=== PATIENT | male | born 1945 | race Caucasian/White ===

== ENCOUNTER → 2020-05-31 | Outpatient (REF) | payer OTHER ==
[2020-05-31 13:50] LABS: APPEARANCE, URINE CLEAR (CLEAR); BACTERIA, URINE AUTO NEGATIVE (NEGATIVE); BILIRUBIN, URINE AUTO NEGATIVE (NEGATIVE); BLOOD, URINE BLOOD NEGATIVE (NEGATIVE); CALCIUM OXALATE CRYSTALS SMALL; COLOR, URINE YELLOW (YELLOW); GLUCOSE, URINE (UA) AUTO 2+ mg/dL (NEGATIVE); KETONE, URINE AUTO NEGATIVE (NEGATIVE); LEUKOCYTE ESTERASE, URINE AUTO NEGATIVE (NEGATIVE); MUCUS, URINE SMALL (NEGATIVE); NITRITE, URINE AUTO NEGATIVE (NEGATIVE); PROTEIN, URINE AUTO NEGATIVE (NEGATIVE); RBC, URINE AUTO 4 /HPF (0-3); SPECIFIC GRAVITY URINE AUTO 1.019 (1.002-1.035); SQUAMOUS EPITHELIAL CELL UR AU 0 /HPF (0-6); UROBILINOGEN, URINE AUTO 0.2 mg/dL (0.0-2.0); WBC, URINE AUTO 1 /HPF (0-3)
== END ==
LOC: M SMT 13:15
PROVIDERS: ATTEND Nurse Practitioner Family
DX: R31.0 Gross hematuria (principal)
CPT/HCPCS: 81001; 87086; 88108; G0463

== ENCOUNTER 2020-07-23 09:19 | Day surgery (SDC) | payer OTHER ==
[~2020-07-23] VITALS: Ht 182.9 cm; Wt 92.9 kg
[~2020-07-23 09:19] MED LIST: ASPI81TA26 PO; DILT1CAP6 PO; GLIP5TAB20 PO; LR 1,000 ML IV ONE; METF10004 PO; NESI12.5 PO; PRAV10TA3 PO; SERT-138 PO; THERTAB52 PO; TRIA37.5 PO; ceFAZolin SOD 2 GM in IV 1 EA IV ONE
--- OUTSIDE RECORDS SUMMARY | 2020-07-23 09:26 | CCD ---
Author Author [facility] er Organization [facility] er Address Unknown Phone Unavailable Care Team Providers Care Windows Server Engineer Name Role Phone RozinaJose M brunson Unavailable PROBLEMS Type Condition ICD9-CM Code [id number] Code Onset Dates Condition S tatus SNOMED Code Notes Problem Kidney stones N20.0 Active 65167435 Problem Nephrolithiasis N20.0 Active 26338552 Problem DM type 2 (diabetes mellitus, type 2) E11.9 Ac tive 13833084 Problem Hypertension I10 Active 41487869 Problem Hyperlipemia E78.5 Active 10848349 ALLERGIES No Known Allergies ENCOUNTERS from 1945 to 2020-06-30 Encounter Location Date Provider Diagnosis [facility] [address] [facility] [address] [place] [address] Jun, Jose M Handy IMMUNIZATIONS Vaccine Route Administration Date Status Zoster (Shingrix) Unknown Jun 08, 2020 Administered Zoster (Shingrix) Unknown Mar 09, 2020 Administered Influenza, Medicare, Fluvirin IM Intramuscular May 07, 2017 A dministered Influenza, Medicare, Afluria IM Intramuscular Apr 25, 2019 Ad ministered PNEUMOCOCCAL VACC 13 RAJAN IM Unknown Jan 28, 2016 Pend ing Influenza, seasonal unspecified Unknown Mar 29, 2020 Administered Influenza, seasonal unspecified Unknown May 02, 2016 Administered Pneumococcal (PPSV 23) 18 or < Unknown Apr 13, 2003 P ending SOCIAL HISTORY Tobacco Use: Social History Observation Description Date Details (start date - stop date) Never Smoker Sex Assigned At : Social History Observation Description Sex Assigned At Unknown Alcohol Screen (Audit-C) Question Answer Notes Did you have a drink containing alcohol in the past year? Ye s Points 1 Interpretation Negative How often did you have 6 or more drinks on one occasio n in the past year? Never (0 points) How many drinks did you have on a typica l day when you were drinking in the past year? 1 or 2 (0 points) How often did you have a drink containing alcohol in t he past year? Monthly or less (1 point) Tobacco Use/Smoking Question Answer Notes Patient is a never smoker REASON FOR REFERRAL No Information VITAL SIGNS No information MEDICATIONS Medication SIG (Take, Route, Frequency, Duration) Notes Start Da te End Date Status Metformin HCl 500 MG 2 tablets Orally Twice a day for 90 days Active Maxzide-25 37.5-25 MG 1 tablet in the morning Orally Once a day Not-Taking Amlodipine Besylate 5 MG 1 tablet Orally Once a day for 30 day(s ) Mar, Active Pravastatin Sodium 20 MG 1 tablet Orally Once a day for 0 days Apr, Active Cialis 20 MG 1 tablet, as needed Orally Once a day Active Aspirin Adult Low Dose 81 MG 1 tablet Orally Once a day Active Dilacor XR 240 MG 1 capsule on an empty stomac h in the morning Orally Once a day for 90 days Active Multivitamin Adult - as directed Orally Apr, Active GlipiZIDE 10 MG 1/2 tablet Orally two times daily Active Zoloft 100 MG 1 1/2 tablet Orally Once a day Active PROCEDURES No Information RESULTS No Results REASON FOR VISIT FYI MEDICAL (GENERAL) HISTORY Type Description Date Medical History DM type 2 (diabetes mellitus, type 2) Medical History Hyperlipemia Medical History Hypertension Medical History Gout Medical History Renal stones Surgical History appendectomy as a child Hospitalization History see surgical hx Goals Section No Information Health Concerns No Information MEDICAL EQUIPMENT No Information MENTAL STATUS No Information FUNCTIONAL STATUS No Information ASSESSMENTS No Information PLAN OF TREATMENT Medication Medication Name Sig Start Date Stop Date Dilacor XR 240 MG 1 capsule on an empty stomac h in the morning Orally Once a day for 90 days Metformin HCl 500 MG 2 tablets Orally Twice a day for 90 days Next Appt Details Provider Name:Jose M Handy, 2020-08-23 8 01:30:00 PM, [address] [facility], [facility] [address], [place], [address], Insurance Providers Payer Name Payer Address Payer Phone Insured Name Patient Relati onship to Insured Coverage Start Date Coverage End Date Medicare [address] [facility] [id number] HERMES PACHECO
--- OUTSIDE RECORDS SUMMARY | 2020-07-23 09:26 | CCD ---
Author Author [facility] er Organization [facility] er Address Unknown Phone Unavailable Care Team Providers Care Clerical Warehouse Worker Name Role Phone Jose M Handy Unavailable PROBLEMS Type Condition ICD9-CM Code [id number] Code Onset Dates Condition S tatus SNOMED Code Notes Problem Kidney stones N20.0 Active 68101193 Problem Nephrolithiasis N20.0 Active 50074630 Problem DM type 2 (diabetes mellitus, type 2) E11.9 Ac tive 87468693 Problem Hypertension I10 Active 67150949 Problem Hyperlipemia E78.5 Active 83901569 ALLERGIES No Known Allergies ENCOUNTERS from 1945 to 2020-06-16 Encounter Location Date Provider Diagnosis [facility] Internal Medicine [address] [facility] [address] [place] [address] May, Jose M Handy IMMUNIZATIONS Vaccine Route Administration [...] RESULTS No Results REASON FOR VISIT FYI only MEDICAL (GENERAL) HISTORY Type Description Date Medical [...] Next Appt Details Provider Name:Jose M Handy, 2020-08- 8 01:30:00 PM, [address] [facility], [address], [place], [address], Insurance Providers Payer Name Payer Address Payer Phone Insured Name Patient Relati onship to Insured Coverage Start Date Coverage End Date Medicare [address] [facility] [id number] HERMES PACHECO
--- OUTSIDE RECORDS SUMMARY | 2020-07-23 09:26 | CCD ---
Author Author [facility] er Organization [facility] er Address Unknown Phone Unavailable Care Team Providers Care Retail Planner Name Role Phone Jose M Handy Unavailable PROBLEMS Type Condition ICD9-CM Code [id number] Code Onset Dates Condition S tatus SNOMED Code Notes Problem Kidney stones N20.0 Active 62018378 Problem Nephrolithiasis N20.0 Active 12569847 Problem DM type 2 (diabetes mellitus, type 2) E11.9 Ac tive 62750384 Problem Hypertension I10 Active 07487056 Problem Hyperlipemia E78.5 Active 44737024 ALLERGIES No Known Allergies ENCOUNTERS from 1945 to 2020-06-10 Encounter Location Date [facility] [address] [facility] [address] [place] [address] May, Jose M Handy DM type 2 (diabetes mellitus , type 2) E11.9 ; Hypertension I10 ; Nephrolithiasis N20.0 and Hyperlipemia E78.5 IMMUNIZATIONS Vaccine Route Administration Date Status Influenza, Medicare, Fluvirin IM Intramuscular May 07, 2017 A dministered Zoster (Shingrix) Unknown Jun 08, 2020 Administered Zoster (Shingrix) Unknown Mar 09, 2020 Administered Influenza, Medicare, Afluria IM Intramuscular Apr 25, [...] REASON FOR REFERRAL No Information VITAL SIGNS Height 71 in May, Weight 207 lbs May, BMI 28.87 kg/m2 May, Heart Rate 80 /min May, Oximetry 99 % May, Blood pressure systolic 132 mm Hg May, Blood pressure diastolic 80 mm Hg May, MEDICATIONS Medication SIG (Take, Route, Frequency, Duration) Notes Start Da te End Date Status Metformin HCl 500 MG 2 tablets Orally Twice a day for 90 days Active Maxzide-25 37.5-25 MG 1 tablet in the morning Orally Once a day Not-Taking Amlodipine Besylate 5 MG 1 tablet Orally Once a day for 30 day(s ) Mar, Active Zoloft 100 MG 1 1/2 tablet Orally Once a day Active Pravastatin Sodium 20 MG 1 tablet Orally Once a day for 0 days Apr, Active Dilacor XR 240 MG 1 capsule on an empty stomac h in the morning Orally Once a day Active GlipiZIDE 10 MG 1/2 tablet Orally two times daily Active Multivitamin Adult - as directed Orally Apr, Active Cialis 20 MG 1 tablet, as needed Orally Once a day Active Aspirin Adult Low Dose 81 MG 1 tablet Orally Once a day Active PROCEDURES No Information RESULTS No Results REASON FOR VISIT 1 month f/u MEDICAL (GENERAL) HISTORY Type Description Date Medical History DM type 2 (diabetes mellitus, type 2) Medical History Hyperlipemia Medical History Hypertension Medical History Gout Medical History Renal stones Surgical History appendectomy as a child Hospitalization History see surgical hx Goals Section No Information Health Concerns No Information MEDICAL EQUIPMENT No Information MENTAL STATUS No Information FUNCTIONAL STATUS No Information ASSESSMENTS Encounter Date Diagnosis Assessment Notes Treatment Notes Treatm ent Clinical Notes May, DM type 2 (diabetes mellitus, type 2) (ICD-10 - E11.9) May, Hypertension (ICD-10 - I10) May, Nephrolithiasis (ICD-10 - N20.0) May, Hyperlipemia (ICD-10 - E78.5) PLAN OF TREATMENT Medication Medication Name Sig Start Date Stop Date Metformin HCl 500 MG 2 tablets Orally Twice a day for 90 days Future Test Test Name Order Date CBC 20200823 CMP COMPREHENSIVE METABOLIC PROFILE 20200823 MICROALBUMIN/CREATININE RATIO 20200823 URINALYSIS 20200823 HEMOGLOBIN A1C 20200823 LIPID PROFILE 20200823 Next Appt Details 3 Months Reason: Provider Name:Jose M Handy, 2020-08-23 8 01:30:00 PM, [address] [facility], [address], [address], Insurance Providers Payer Name Payer Address Payer Phone Insured Name Patient Relati onship to Insured Coverage Start Date Coverage End Date Medicare [address] [place] [address] HERMES PACHECO self
--- OUTSIDE RECORDS SUMMARY | 2020-07-23 09:26 | CCD ---
Author Author [facility] er Organization [facility] er Address Unknown Phone Unavailable Care Team Providers Care Speeder Hand Name Role Phone Rozina, Jose M Unavailable PROBLEMS Type Condition ICD9-CM Code [id number] Code Onset Dates Condition S tatus SNOMED Code Notes Problem Kidney stones N20.0 Active 08140430 Problem Nephrolithiasis N20.0 Active 76051913 Problem DM type 2 (diabetes mellitus, type 2) E11.9 Ac tive 55697780 Problem Hypertension I10 Active 51156284 Problem Hyperlipemia E78.5 Active 73515377 ALLERGIES No Known Allergies ENCOUNTERS from 1945 to 2020-06-01 Encounter Location Date Provider Diagnosis [facility] [address] [facility] [address] [place] [address] Nov, Jose M Handy IMMUNIZATIONS Vaccine Route Administration Date Status Zoster (Shingrix) Unknown Mar 09, 2020 Administered [...] Notes Start Da te End Date Status Dilacor XR 240 MG 1 capsule on an empty stomac h in the morning Orally Once a day Active GlipiZIDE 10 MG 1/2 tablet Orally two times daily Active Maxzide-25 37.5-25 MG 1 tablet in the morning Orally Once a day Not-Taking Cialis 20 MG 1 tablet, as needed Orally Once a day Active Metformin HCl 500 MG 2 tablets Orally Twice a day for 90 days Active Multivitamin Adult - as directed Orally Apr, Active Zoloft 100 MG 1 1/2 tablet Orally Once a day Active Amlodipine Besylate 5 MG 1 tablet Orally Once a day for 30 day(s ) Mar, Active Aspirin Adult Low Dose 81 MG 1 tablet Orally Once a day Active Pravastatin Sodium 20 MG 1 tablet Orally Once a day for 0 days Apr, Active PROCEDURES No Information RESULTS No Results REASON FOR VISIT No Information MEDICAL (GENERAL) HISTORY Type Description Date Medical [...] Orally Twice a day for 90 days Amlodipine Besylate 5 MG 1 tablet Orally Once a day for 30 day(s ) Mar, Next Appt Details Provider Name:Jose M Handy, 2019-12-1 5 01:15:00 PM, [address] [facility], [address], [place], [address], Insurance Providers Payer Name Payer Address Payer Phone Insured Name Patient Relati onship to Insured Coverage Start Date Coverage End Date Medicare [address] [facility] [id number] HERMES PACHECO
--- OUTSIDE RECORDS SUMMARY | 2020-07-23 09:26 | CCD ---
Author Author [facility] er Organization [facility] er Address Unknown Phone Unavailable Care Team Providers Care Manager Field Name Role Phone Rozina, Jose M Unavailable PROBLEMS Type Condition ICD9-CM Code [id number] Code Onset Dates Condition S tatus SNOMED Code Notes Problem Kidney stones N20.0 Active 13986813 Problem Nephrolithiasis N20.0 Active 17135931 Problem DM type 2 (diabetes mellitus, type 2) E11.9 Ac tive 50331074 Problem Hypertension I10 Active 58697600 Problem Hyperlipemia E78.5 Active 95177259 ALLERGIES No Known Allergies ENCOUNTERS from 1945 to 2020-06-03 Encounter Location Date Provider Diagnosis [facility] [address] [facility] [address] [place] [address] October, Jose M Handy IMMUNIZATIONS Vaccine Route Administration [...] M Handy, 2019-12-1 5 01:15:00 PM, 3 [facility], [address], [place], [address], Insurance Providers Payer Name Payer Address Payer Phone Insured Name Patient Relati onship to Insured Coverage Start Date Coverage End Date Medicare [address] [facility] [address] HERMES PACHECO
--- OUTSIDE RECORDS SUMMARY | 2020-07-23 09:26 | CCD ---
Author Author [facility] Organization [facility] Address Unknown Phone Unavailable Care Team Providers Care Senior Net Application Developer Name Role Phone Siddhartha Woody Unavailable PROBLEMS Type Condition ICD9-CM Code [id number] Code Onset Dates Condition S tatus SNOMED Code Notes Problem Gross hematuria R31.0 Active 280783779 ALLERGIES No Known Allergies ENCOUNTERS from 1945 to 2020-06-29 Encounter Location Date Provider Diagnosis [facility] [address] [place] [address] Jun Siddhartha Woody 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 Sexual Hx: Question Answer Notes Had sex in the last 12 months (vaginal, oral, or anal)? No Have you ever had an STD? No Alcohol Screening: Question Answer Notes Did you have a drink containing alcohol in the past year? Ye s Points 2 Interpretation Negative How many drinks did you have on a typica l day when you were drinking in the past year? 3 or 4 (1 point) How often did you have a drink containing alcohol in t he past year? Monthly or less (1 point) Tobacco Use: Question Answer Notes Are you a: former smoker quit 03/1974 REASON FOR REFERRAL No Information VITAL SIGNS No information MEDICATIONS Medication SIG (Take, Route, Frequency, Duration) Notes Start Da te End Date Status Lisinopril-Hydrochlorothiazide 20-12.5 MG 1 tablet Ora lly Once a day for 30 day(s) Active Cipro 500 MG 1 tablet Orally every 12 hrs for 1 day(s) May, Active GlipiZIDE 10 MG 1 tab Orally bid Act nimco Bactrim DS 800-160 MG 1 tablet 1 hour prior to you r cystoscopy Orally Once for 1 days May, Not-Taking Metformin HCl 500 MG 1 tablet with a meal Orally bid Active PROCEDURES No Information RESULTS No Results REASON FOR VISIT COVID Test MEDICAL (GENERAL) HISTORY Type Description Date Medical History HTN Medical History DM Medical History PTSD Surgical History appendectomy Surgical History cystoscopy 06/15/20 Hospitalization History sx related Goals Section No Information Health Concerns No Information MEDICAL EQUIPMENT No Information MENTAL STATUS No Information FUNCTIONAL STATUS No Information ASSESSMENTS Encounter Date Diagnosis Assessment Notes Treatment Notes Treatm ent Clinical Notes Jun, Bladder neoplasm (ICD-10 - D49.4) Jun, Preop testing (ICD-10 - Z01.818) PLAN OF TREATMENT Medication Medication Name Sig Start Date Stop Date Cipro 500 MG 1 tablet Orally every 12 hrs for 1 day(s) May Treatment Notes Test Name Order Date Coronavirus 2019 NOSE (Send Out) COVID 2020-06-29 Next Appt Details Provider Name:Siddhartha Polanco Bong, 2020-07-27 10:15:00 AM, [address], [place], [address], Insurance Providers Payer Name Payer Address Payer Phone Insured Name Patient Relati onship to Insured Coverage Start Date Coverage End Date 'S ADMINSTRATION ([place]) NON [place] CARE [address] [address] [facility] [id number] CARMEN PACHECO
--- OUTSIDE RECORDS SUMMARY | 2020-07-23 09:26 | CCD ---
Author Author [facility] er Organization [facility] er Address Unknown Phone Unavailable Care Team Providers Care Evp Name Role Phone Jose M Handy Unavailable PROBLEMS Type Condition ICD9-CM Code [id number] Code Onset Dates Condition S tatus SNOMED Code Notes Problem Kidney stones N20.0 Active 70275305 Problem Nephrolithiasis N20.0 Active 58892821 Problem DM type 2 (diabetes mellitus, type 2) E11.9 Ac tive 84085636 Problem Hypertension I10 Active 88728808 Problem Hyperlipemia E78.5 Active 37654387 ALLERGIES No Known Allergies ENCOUNTERS from 1945 to 2020-06-12 Encounter Location Date Provider Diagnosis [facility] 3 [facility] [address] [place] [address] May, Jose M Handy IMMUNIZATIONS Vaccine Route [...] Information RESULTS No Results REASON FOR VISIT Follow up Appointment Needed MEDICAL (GENERAL) HISTORY Type Description Date Medical [...] M Handy, 2020-08- 8 01:30:00 PM, 3 [facility], [address], [place], [address], Insurance Providers Payer Name Payer Address Payer Phone Insured Name Patient Relati onship to Insured Coverage Start Date Coverage End Date Medicare [address] [facility] [id number] HERMES PACHECO self
--- OUTSIDE RECORDS SUMMARY | 2020-07-23 09:26 | CCD ---
Author Author [facility] er Organization [facility] er Address Unknown Phone Unavailable Care Team Providers Care Quality Engineer Medical Device Name Role Phone Rozina, Jose M Unavailable PROBLEMS Type Condition ICD9-CM Code [id number] Code Onset Dates Condition S tatus SNOMED Code Notes Problem Kidney stones N20.0 Active 02085119 Problem Nephrolithiasis N20.0 Active 02257744 Problem DM type 2 (diabetes mellitus, type 2) E11.9 Ac tive 54934877 Problem Hypertension I10 Active 79094108 Problem Hyperlipemia E78.5 Active 65113231 ALLERGIES No Known Allergies ENCOUNTERS from 1945 to 2020-06-14 Encounter Location Date Provider Diagnosis [facility] Nephrology [address] [facility] [address] [place] [address] Jan, Jose M Handy IMMUNIZATIONS Vaccine Route Administration [...] M Handy, 2020-08- 8 01:30:00 PM, 3 [facility], [address], [place], [address], Insurance Providers Payer Name Payer Address Payer Phone Insured Name Patient Relati onship to Insured Coverage Start Date Coverage End Date Medicare [address] [facility] [address] HERMES PACHECO self
--- OUTSIDE RECORDS SUMMARY | 2020-07-23 09:26 | CCD ---
Author Author [facility] er Organization [facility] er Address Unknown Phone Unavailable Care Team Providers Care Nuclear Officer Name Role Phone Jose M Handy Unavailable PROBLEMS Type Condition ICD9-CM Code [id number] Code Onset Dates Condition S tatus SNOMED Code Notes Problem Kidney stones N20.0 Active 44049069 Problem Nephrolithiasis N20.0 Active 37849431 Problem DM type 2 (diabetes mellitus, type 2) E11.9 Ac tive 62321554 Problem Hypertension I10 Active 58821443 Problem Hyperlipemia E78.5 Active 25807452 ALLERGIES No Known Allergies ENCOUNTERS from 1945 to 2020-06-03 Encounter Location Date Provider Diagnosis [facility] [address] [facility] [address] [place] [address] May, Jose M Handy IMMUNIZATIONS Vaccine Route [...] Information RESULTS No Results REASON FOR VISIT appt MEDICAL (GENERAL) HISTORY Type Description Date Medical [...] M Handy, 2019-12-1 5 01:15:00 PM, 3 [facility], [address], [place], [address], Insurance Providers Payer Name Payer Address Payer Phone Insured Name Patient Relati onship to Insured Coverage Start Date Coverage End Date Medicare [address] [facility] [id number] HERMES PACHECO
--- OUTSIDE RECORDS SUMMARY | 2020-07-23 09:26 | CCD ---
Author Author [facility] er Organization [facility] er Address Unknown Phone Unavailable Care Team Providers Care Manuscript Reader Name Role Phone RozinaJose M brunson Unavailable PROBLEMS Type Condition ICD9-CM Code [id number] Code Onset Dates Condition S tatus SNOMED Code Notes Problem Kidney stones N20.0 Active 35054879 Problem Nephrolithiasis N20.0 Active 63046071 Problem DM type 2 (diabetes mellitus, type 2) E11.9 Ac tive 79326931 Problem Hypertension I10 Active 38646826 Problem Hyperlipemia E78.5 Active 81135603 ALLERGIES No Known Allergies ENCOUNTERS from 1945 to 2020-07-01 Encounter Location Date Provider Diagnosis [facility] [address] [facility] [address] [place] [address] October, Jose M Handy IMMUNIZATIONS Vaccine Route [...] M Handy, 2020-08- 8 01:30:00 PM, 3 [facility], [facility] [address], [place], [address], Insurance Providers Payer Name Payer Address Payer Phone Insured Name Patient Relati onship to Insured Coverage Start Date Coverage End Date Medicare [address] [facility] [id number] HERMES PACHECO
--- OUTSIDE RECORDS SUMMARY | 2020-07-23 09:26 | CCD ---
Author Author [facility] Organization [facility] Address Unknown Phone Unavailable Care Team Providers Care Intraoperative Neuro Tech Name Role Phone Gus Lopez Unavailable PROBLEMS Type Condition ICD9-CM Code [id number] Code Onset Dates Condition S tatus SNOMED Code Notes Problem Gross hematuria R31.0 Active 350744759 ALLERGIES No Known Allergies ENCOUNTERS from 1945 to 2020-06-17 Encounter Location Date Provider Diagnosis [facility] U[facility] [address] [place] [address] May Gus Lopez Gross hematuria R31.0 and Bladder neopla sm D49.4 IMMUNIZATIONS No Information SOCIAL HISTORY Tobacco Use: Social History Observation Description Date Details (start date - stop date) Former Smoker Sex Assigned At : Social History Observation Description Sex Assigned At Unknown Language: Question Answer Notes Languages spoken: Swedish Sikhism: Question Answer Notes Sikhism No confucianist beliefs that would impact health care. Sexual [...] REASON FOR REFERRAL No Information VITAL SIGNS Weight 205.2 lbs May, Height 72 in May, BMI 27.83 kg/m2 May, Heart Rate 76 /min May, Respiratory Rate 18 /min May, Temperature 96.1 degrees Fahrenheit May, Oximetry 96 May, Blood pressure systolic 138 mm Hg May, Blood pressure diastolic 64 mm Hg May, MEDICATIONS Medication SIG (Take, [...] with a meal Orally bid Active PROCEDURES from 1944 to 2020-06-17 Procedure Date Ordered Result Body Site Medication: Lidocaine HCl 2% Jelly 5mL Intravesically 2020-06-15 N/A RESULTS No Results REASON FOR VISIT gross hematuria MEDICAL (GENERAL) HISTORY Type Description Date Medical History HTN Medical History DM Medical History PTSD Surgical History appendectomy Surgical History cystoscopy 06/15/20 Hospitalization History sx related Goals Section No Information Health Concerns No Information MEDICAL EQUIPMENT No Information MENTAL STATUS No Information FUNCTIONAL STATUS No Information ASSESSMENTS Encounter Date Diagnosis Assessment Notes Treatment Notes Treatm ent Clinical Notes May, Gross hematuria (ICD-10 - R31.0) Because of the patient's tumor, he'll be scheduled for same-day surgery for bladder tumor resection. 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 Treatment Notes Test Name Order Date CBC - Complete Blood Count 2020-06-17 Basic Metabolic Profile (BMP) 2020-06-17 PT & APTT 2020-06-17 URINE CULTURE 2020-06-17 Electrocardiogram (EKG) 2020-06-17 ADM CHEST 2 VIEW 2020-06-17 Next Appt Details 4 Weeks Reason:postop TURBT Follow Up:4 Weekspostop TURBT Insurance Providers Payer Name Payer Address Payer Phone Insured Name Patient Relati onship to Insured Coverage Start Date Coverage End Date 'S ADMINSTRATION ([place]) NON [place] CARE [address] [address] [facility] [id number] [employer]
--- OUTSIDE RECORDS SUMMARY | 2020-07-23 09:26 | CCD ---
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 Role Phone Rozina, Jose M Unavailable PROBLEMS Type Condition ICD9-CM Code [id number] Code Onset Dates Condition S tatus SNOMED Code Notes Problem Kidney stones N20.0 Active 72949854 Problem Nephrolithiasis N20.0 Active 04401143 Problem DM type 2 (diabetes mellitus, type 2) E11.9 Ac tive 45098696 Problem Hypertension I10 Active 00095316 Problem Hyperlipemia E78.5 Active 38543704 ALLERGIES No Known Allergies ENCOUNTERS from 1945 to 2020-05-20 Encounter Location Date Provider Diagnosis [facility] Ne[facility] [address] [place] [address] Apr, JoseM Handy IMMUNIZATIONS Vaccine Route Administration Date Status Zoster (Shingrix) Unknown Mar 09, 2020 Administered Influenza, Medicare, Afluria IM Intramuscular Apr 25, 2019 Ad ministered Influenza, Medicare, Fluvirin IM Intramuscular May 07, 2017 A dministered PNEUMOCOCCAL VACC 13 RAJAN IM Unknown Jan [...] M Handy, 2019-12-1 5 01:15:00 PM, [address], [address], [place], [address], Insurance Providers Payer Name Payer Address Payer Phone Insured Name Patient Relati onship to Insured Coverage Start Date Coverage End Date Medicare [address] [facility] [id number] [place]
--- OUTSIDE RECORDS SUMMARY | 2020-07-23 09:26 | CCD ---
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 Name Role Phone Siddhartha Woody Unavailable PROBLEMS Type Condition ICD9-CM Code NEI57-MS Code Onset Dates Condition S tatus SNOMED Code Notes Problem Gross hematuria R31.0 Active [id number] ALLERGIES No Known Allergies ENCOUNTERS from 1945 to 2020-06-02 Encounter Location Date Provider Diagnosis [facility] Urology [address] [place] [address] May Siddhartha Woody Gross hematuria R31.0 IMMUNIZATIONS No Information SOCIAL HISTORY Tobacco Use: Social History Observation Description Date Details (start date - stop date) Former Smoker Sex Assigned At : Social History Observation Description Sex Assigned At Unknown Language: Question Answer Notes Languages spoken: Moroccan Faith: Question Answer Notes Faith No congregational beliefs that would impact health care. Sexual [...] FOR REFERRAL No Information VITAL SIGNS Weight 208.6 lbs May, Height 72 in May, BMI 28.29 kg/m2 May, Heart Rate 89 /min May, Respiratory Rate 18 /min May, Temperature 97.3 degrees Fahrenheit May, Oximetry 98 May, Blood pressure systolic 150 mm Hg May, Blood pressure diastolic 80 mm Hg May, MEDICATIONS Medication SIG (Take, Route, Frequency, Duration) Notes Start Da te End Date Status Metformin HCl 500 MG 1 tablet with a meal Orally bid Active GlipiZIDE 10 MG 1 tab Orally bid Act nimco Lisinopril-Hydrochlorothiazide 20-12.5 MG 1 tablet Ora lly Once a day for 30 day(s) Active Bactrim DS 800-160 MG 1 tablet 1 hour prior to you r cystoscopy Orally Once for 1 days May, Active PROCEDURES No Information RESULTS Component Value Reference Range UA URINALYSIS Reviewed date:05/31/2020 14:16:36 Interpretation: Performing Lab:[facility] [address] [address] , ,[facility] URINE CULTURE Reviewed date:06/01/2020 09:49:35 Interpretation: Performing Lab:[facility] [address] [address] , ,[place] [id number] 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 CYTOLOGY REQ FOR SERVI Reviewed date:06/01/2020 12:04:54 Interpretation: Performing Lab:[facility] [address] [address] , ,[facility] URINE REASON FOR VISIT RENAL CALCULI MEDICAL (GENERAL) HISTORY Type Description Date Medical History HTN Medical History DM Medical History PTSD Surgical History appendectomy Hospitalization History sx related Goals Section No Information Health Concerns No Information MEDICAL EQUIPMENT No Information MENTAL STATUS No Information FUNCTIONAL STATUS No Information ASSESSMENTS Encounter Date Diagnosis Assessment Notes Treatment Notes Treatm ent Clinical Notes May, Gross hematuria (ICD-10 - R31.0) We will send urine for a UA, culture and cytology. His CT did show mild right hydronephrosis, pt brought CT disk today, will have doctor review at time of cystoscopy. Discussed his nonobstructing stone is not causing the hematuria. Pt will need a cystoscopy. Procedure reviewed with pt to include risk of infection and bleeding. Consent signed today. [facility] PLAN OF TREATMENT Medication Medication Name Sig Start Date Stop Date Bactrim DS 800-160 MG 1 tablet 1 hour prior to you r cystoscopy Orally Once for 1 days May, Treatment Notes Assessment Notes Clinical Notes Gross hematuria We will send urine f or a UA, culture and cytology. His CT did show mild right hydronephrosis, pt brought CT disk today, will have doctor review at time of cystoscopy. Discussed his nonobstructing stone is not causing the hematuria. Pt will need a cystoscopy. Procedure reviewed with pt to include risk of infection and bleeding. Consent signed today. ABX faxed to [place]. Next Appt Details cystoscopy Reason:gross hematuria Provider Name:Gus Lopez, 2020-06-15 03:00:00 PM, [address], [place], [address], Follow Up:cystoscopygross hematuria Insurance Providers Payer Name Payer Address Payer Phone Insured Name Patient Relati onship to Insured Coverage Start Date Coverage End Date [facility] [address] [facility] [id number] [employer]
--- OUTSIDE RECORDS SUMMARY | 2020-07-23 09:27 | CCD ---
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 Role Phone Tommy Lopez MD Unavailable Unavailable Tommy Lopez MD Unavailable Unavailable Tommy Lopez MD Unavailable Unavailable Tommy Lopez MD Unavailable Unavailable Tommy Lopez MD Unavailable Unavailable Tommy Lopez MD Unavailable Unavailable Tommy Lopez MD Unavailable Unavailable Tommy oLpez MD Unavailable Unavailable Tommy Lopez MD Unavailable Unavailable Tommy Lopez MD Unavailable Unavailable Tommy Lopez MD Unavailable Unavailable Tommy Lopez MD Unavailable Unavailable Tommy Lopez MD Unavailable Unavailable Tommy Lopez MD Unavailable Unavailable Tommy Lopez MD Unavailable Unavailable DAVID, SAHIL LISA PA Unavailable Unavailable DAVID, SAHIL LISA PA Unavailable Unavailable DAVID, SAHIL LISA PA Unavailable Unavailable DAVID, SAHIL LISA PA Unavailable Unavailable DAVID, SAHIL LISA PA Unavailable Unavailable DAVID, SAHIL LISA PA Unavailable Unavailable DAVID, SAHIL LISA PA Unavailable Unavailable DAVID, SAHIL LISA PA Unavailable Unavailable DAVID, SAHIL LISA PA Unavailable Unavailable DAVID, SAHIL LISA PA Unavailable Unavailable DAVID, SAHIL LISA PA Unavailable Unavailable DAVID, SAHIL LISA PA Unavailable Unavailable DAVID, SAHIL LISA PA Unavailable Unavailable DAVID, SAHIL LISA PA Unavailable Unavailable DAVID, SAHIL LISA PA Unavailable Unavailable DAVID, SAHIL LISA PA Unavailable Unavailable DAVID, SAHIL LISA PA Unavailable Unavailable DAVID, SAHIL LISA PA Unavailable Unavailable DAVID, SAHIL LISA PA Unavailable Unavailable DAVID, SAHIL LISA PA Unavailable Unavailable DAVIDSAHIL ANDERSON PA Unavailable Unavailable Shalonda Kapadia MD Unavailable Unavailable Shalonda Kapadia MD Unavailable Unavailable Shalonda Kapadia MD Unavailable Unavailable Shalonda Kapadia MD Unavailable Unavailable Shalonda Kapadia MD Unavailable Unavailable Shalonda Kapadia MD Unavailable Unavailable Shalonda Kapadia MD Unavailable Unavailable Shalonda Kapadia MD Unavailable Unavailable Shalonda Kapadia MD Unavailable Unavailable Shalonda Kapadia MD Unavailable Unavailable Shalonda Kapadia MD Unavailable Unavailable Shalonda Kapadia MD Unavailable Unavailable Shalonda Kapadia MD Unavailable Unavailable Shalonda Kapadia MD Unavailable Unavailable Shalonda Kapadia MD Unavailable Unavailable Shalonda Kapadia MD Unavailable Unavailable Shalonda Kapadia MD Unavailable Unavailable Rei REYES MD Unavailable Unavailable Rei REYES MD Unavailable Unavailable Rei REYES MD Unavailable Unavailable Rei REYES MD Unavailable Unavailable Rei REYES MD Unavailable Unavailable Rei REYES MD Unavailable Unavailable Rei REYES MD Unavailable Unavailable Rei REYES MD Unavailable Unavailable Rei REYES MD Unavailable Unavailable Rei REYES MD Unavailable Unavailable Rei REYES MD Unavailable Unavailable Rei REYES MD Unavailable Unavailable Rei REYES MD Unavailable Unavailable Rei REYES MD Unavailable Unavailable Rei REYES MD Unavailable Unavailable Rei REYES MD Unavailable Unavailable Rei REYES MD Unavailable Unavailable Rei REYES MD Unavailable Unavailable Rei REYES MD Unavailable Unavailable Rei REYES MD Unavailable Unavailable Rei REYES MD Unavailable Unavailable Rei REYES MD Unavailable Unavailable Rei REYES MD Unavailable Unavailable Rei REYES MD Unavailable Unavailable Rei REYES MD Unavailable Unavailable Rei REYES MD Unavailable Unavailable Rei REYES MD Unavailable Unavailable Rei REYES MD Unavailable Unavailable AMYRei BENITEZ MD Unavailable Unavailable Rei REYES MD Unavailable Unavailable AMYRei BENITEZ MD Unavailable Unavailable Rei REYES MD Unavailable Unavailable Rei REYES MD Unavailable Unavailable AMYRei BENITEZ MD Unavailable Unavailable AMY, S BLAIR MD Unavailable Unavailable AMY, S BLAIR MD Unavailable Unavailable AMY, S BLAIR MD Unavailable Unavailable AMY, S BLAIR MD Unavailable Unavailable AMY, S BLAIR MD Unavailable Unavailable AMY, S BLAIR MD Unavailable Unavailable AMY, S BLAIR MD Unavailable Unavailable AMY, S BLAIR MD Unavailable Unavailable AMY, S BLAIR MD Unavailable Unavailable AMY, S BLAIR MD Unavailable Unavailable AMY, S BLAIR MD Unavailable Unavailable AMY, S BLAIR MD Unavailable Unavailable AMY, S BLAIR MD Unavailable Unavailable AMY, S BLAIR MD Unavailable Unavailable AMY, S BLAIR MD Unavailable Unavailable AMY, S BLAIR MD Unavailable Unavailable AMY, S BLAIR MD Unavailable Unavailable AMY, S BLAIR MD Unavailable Unavailable AMY, S BLAIR MD Unavailable Unavailable AMY, S BLAIR MD Unavailable Unavailable AMY, S BLAIR MD Unavailable Unavailable AMY, S BLAIR MD Unavailable Unavailable AMY, S BLAIR MD Unavailable Unavailable AMY, S BLAIR MD Unavailable Unavailable BROUGHAL, C HEMANT PA Unavailable Unavailable BROUGHAL, C HEMANT PA Unavailable Unavailable BROUGHAL, C HEMANT PA Unavailable Unavailable BROUGHAL, C HEMANT PA Unavailable Unavailable BROUGHAL, C HEMANT PA Unavailable Unavailable BROUGHAL, C HEMANT PA Unavailable Unavailable Re-disclosure Warning The records that you are about to access may contain information from federally-assisted alcohol or drug abuse programs. If such information is present, then the following federally mandated warning applies: This information has been disclosed to you from records protected by federal confidentiality rules (42 CFR part 2). The federal rules prohibit you from making any further disclosure of this information unless further disclosure is expressly permitted by the written consent of the person to whom it pertains or as otherwise permitted by 42 CFR part 2. A general authorization for the release of medical or other information is NOT sufficient for this purpose. The Federal rules restrict any use of the information to criminally investigate or prosecute any alcohol or drug abuse patient.The records that you are about to access may contain highly sensitive health information, the redisclosure of which is protected by Article 27-F of the [facility] Public Health law. If you continue you may have access to information: Regarding HIV / AIDS; Provided by facilities licensed or operated by the [facility] Office of Mental Health; or Provided by the [facility] Office for People With Developmental Disabilities. If such information is present, then the following [facility] mandated warning applies: This information has been disclosed to you from confidential records which are protected by state law. State law prohibits you from making any further disclosure of this information without the specific written consent of the person to whom it pertains, or as otherwise permitted by law. Any unauthorized further disclosure in violation of state law may result in a fine or shelter sentence or both. A general authorization for the release of medical or other information is NOT sufficient authorization for further disc losure. Encounters Encounter Providers Location Date Indications Data Source(s ) Outpatient Attender: HEMANT SILVA CPSCAORT-LABCOVWAR 0 07/18/2020 08:32:00 AM EST - 07/18/2020 08:33:00 AM EST Z01.812 [facility] al Z01.812 Patient discharged. Outpatient Attender: LISA SILVA ER-HICCS 07/12/2020 02:12: 00 PM [facility] Outpatient Attender: Jeison Kaur hector: Gus Lopez MDReferrer: Gus Lopez MD SURG-VA-OHS 07/06/2020 11:31:00 AM EST [facility] Outpatient [address] [facility] [address] [place] [address] 06/29/2020 12:00:00 AM EST eCW1 ([facility]) Unknown [address] [facility], [facility] [address] 06/28/2020 12:00:00 AM EST eCW1 ([facility]) Outpatient [address] [facility] [address] [place] [address] 06/16/2020 12:00:00 AM EST eCW1 ([facility]) (Cysto1) Urology [address] [place] [address] 06/15/2020 12:00:00 AM EST eCW1 ([facility]) Outpatient [address] [facility] [address] [place] [address] 06/10/2020 12:00:00 AM EST eCW1 ([facility]) Outpatient [address] [facility] [address] [place] [address] 06/08/2020 12:00:00 AM EST eCW1 ([facility]) Outpatient Attender: BLAIR REYES MD ER-LAB 06/05/2020 06:40:0 0 AM EST [facility] Outpatient [address] [facility] [address] [place] [address] 06/01/2020 12:00:00 AM EST eCW1 ([facility]) Outpatient [address] [facility] [address] 05/31/2020 12:00:00 AM EST eCW1 ([facility]) Outpatient [address] [facility] [address] [place] [address] 05/11/2020 12:00:00 AM EST eCW1 ([facility]) Outpatient [address] [facility] [address] [place] [address] 05/07/2020 12:00:00 AM EST eCW1 ([facility]) Outpatient [address] [facility] [place] [address] 05/07/2020 12:00:00 AM EST eCW1 ([facility]) Outpatient [address] [facility] [address] [place] [address] 04/26/2020 12:00:00 AM EST eCW1 ([facility]) Outpatient Attender: BLAIR REYES MD ER-LAB 04/23/2020 08:17:0 0 AM EDT [facility] Outpatient [address] [facility] [place] [address] 04/19/2020 12:00:00 AM EDT eCW1 ([facility]) Outpatient Attender: BLAIR REYES MD ER-LAB 04/15/2020 01:56:0 0 PM EDT [facility] Outpatient [address] [facility] [address] [place] [address] 04/15/2020 12:00:00 AM EDT eCW1 ([facility]) Outpatient Attender: BLAIR REYES MD ER-RAD 04/14/2020 08:54:0 0 AM EDT [facility] Outpatient 3 [facility] [address] [place] [address] 04/14/2020 12:00:00 AM EDT eCW1 ([facility] [place]) Outpatient Attender: BLAIR REYES MD ER-LAB-PNP 04/13/2020 01:11:0 0 PM EDT [facility] Outpatient [address] [facility] [address] [place] [address] 04/13/2020 12:00:00 AM EDT eCW1 ([facility]) Outpatient [address] [facility] [address] [place] [address] 04/13/2020 12:00:00 AM EDT eCW1 ([facility]) Outpatient 3 [facility] [address] [place] [address] 04/05/2020 12:00:00 AM EDT eCW1 ([facility] [place]) Immunizations Vaccine Date Status Description Data Source(s) Zoster (Shingrix) 06/08/2020 01:20:00 PM EST completed eCW1 ([facility]) Zoster (Shingrix) 06/08/2020 01:20:00 PM EST completed eCW1 ([facility]) Zoster (Shingrix) 06/08/2020 01:20:00 PM EST completed eCW1 ([facility]) Zoster (Shingrix) 06/08/2020 01:20:00 PM EST completed eCW1 ([facility]) Zoster (Shingrix) 06/08/2020 01:20:00 PM EST completed eCW1 ([facility]) Zoster (Shingrix) 06/08/2020 01:20:00 PM EST completed eCW1 ([facility]) IIV3. This is one of two codes replacing CVX 15, which is being retired. 03/29/2020 10:57:00 AM EDT completed eCW1 ([facility]) IIV3. This is one of two codes replacing CVX 15, which is being retired. 03/29/2020 10:57:00 AM EDT completed eCW1 ([facility]) IIV3. This is one of two codes replacing CVX 15, which is being retired. 03/29/2020 10:57:00 AM EDT completed eCW1 ([facility]) IIV3. This is one of two codes replacing CVX 15, which is being retired. 03/29/2020 10:57:00 AM EDT completed eCW1 ([facility]) IIV3. This is one of two codes replacing CVX 15, which is being retired. 03/29/2020 10:57:00 AM EDT completed eCW1 ([facility]) IIV3. This is one of two codes replacing CVX 15, which is being retired. 03/29/2020 10:57:00 AM EDT completed eCW1 ([facility]) IIV3. This is one of two codes replacing CVX 15, which is being retired. 03/29/2020 10:57:00 AM EDT completed eCW1 ([facility]) IIV3. This is one of two codes replacing CVX 15, which is being retired. 03/29/2020 10:57:00 AM EDT completed eCW1 ([facility]) IIV3. This is one of two codes replacing CVX 15, which is being retired. 03/29/2020 10:57:00 AM EDT completed eCW1 ([facility]) IIV3. This is one of two codes replacing CVX 15, which is being retired. 03/29/2020 10:57:00 AM EDT completed eCW1 ([facility]) IIV3. This is one of two codes replacing CVX 15, which is being retired. 03/29/2020 10:57:00 AM EDT completed eCW1 ([facility]) IIV3. This is one of two codes replacing CVX 15, which is being retired. 03/29/2020 10:57:00 AM EDT completed eCW1 ([facility]) IIV3. This is one of two codes replacing CVX 15, which is being retired. 03/29/2020 10:57:00 AM EDT completed eCW1 ([facility]) IIV3. This is one of two codes replacing CVX 15, which is being retired. 03/29/2020 10:57:00 AM EDT completed eCW1 ([facility]) IIV3. This is one of two codes replacing CVX 15, which is being retired. 03/29/2020 10:57:00 AM EDT completed eCW1 ([facility]) IIV3. This is one of two codes replacing CVX 15, which is being retired. 03/29/2020 10:57:00 AM EDT completed eCW1 ([facility]) IIV3. This is one of two codes replacing CVX 15, which is being retired. 03/29/2020 10:57:00 AM EDT completed eCW1 ([facility]) IIV3. This is one of two codes replacing CVX 15, which is being retired. 03/29/2020 10:57:00 AM EDT completed eCW1 ([facility]) IIV3. This is one of two codes replacing CVX 15, which is being retired. 03/29/2020 10:57:00 AM EDT completed eCW1 ([facility]) IIV3. This is one of two codes replacing CVX 15, which is being retired. 03/29/2020 10:57:00 AM EDT completed eCW1 ([facility]) IIV3. This is one of two codes replacing CVX 15, which is being retired. 03/29/2020 10:57:00 AM EDT completed eCW1 ([facility]) IIV3. This is one of two codes replacing CVX 15, which is being retired. 03/29/2020 10:57:00 AM EDT completed eCW1 ([facility]) IIV3. This is one of two codes replacing CVX 15, which is being retired. 03/29/2020 10:57:00 AM EDT completed eCW1 ([facility]) IIV3. This is one of two codes replacing CVX 15, which is being retired. 03/29/2020 10:57:00 AM EDT completed eCW1 ([facility]) Zoster (Shingrix) 03/09/2020 10:57:00 AM EDT completed eCW1 ([facility]) Zoster (Shingrix) 03/09/2020 10:57:00 AM EDT completed eCW1 ([facility]) Zoster (Shingrix) 03/09/2020 10:57:00 AM EDT completed eCW1 ([facility]) Zoster (Shingrix) 03/09/2020 10:57:00 AM EDT completed eCW1 ([facility]) Zoster (Shingrix) 03/09/2020 10:57:00 AM EDT completed eCW1 ([facility]) Zoster (Shingrix) 03/09/2020 10:57:00 AM EDT completed eCW1 ([facility]) Zoster (Shingrix) 03/09/2020 10:57:00 AM EDT completed eCW1 ([facility]) Zoster (Shingrix) 03/09/2020 10:57:00 AM EDT completed eCW1 ([facility]) Zoster (Shingrix) 03/09/2020 10:57:00 AM EDT completed eCW1 ([facility]) Zoster (Shingrix) 03/09/2020 10:57:00 AM EDT completed eCW1 ([facility]) Zoster (Shingrix) 03/09/2020 10:57:00 AM EDT completed eCW1 ([facility]) Zoster (Shingrix) 03/09/2020 10:57:00 AM EDT completed eCW1 ([facility]) Zoster (Shingrix) 03/09/2020 10:57:00 AM EDT completed eCW1 ([facility]) Zoster (Shingrix) 03/09/2020 10:57:00 AM EDT completed eCW1 ([facility]) Zoster (Shingrix) 03/09/2020 10:57:00 AM EDT completed eCW1 ([facility]) Zoster (Shingrix) 03/09/2020 10:57:00 AM EDT completed eCW1 ([facility]) Zoster (Shingrix) 03/09/2020 10:57:00 AM EDT completed eCW1 ([facility]) Zoster (Shingrix) 03/09/2020 10:57:00 AM EDT completed eCW1 ([facility]) Zoster (Shingrix) 03/09/2020 10:57:00 AM EDT completed eCW1 ([facility]) Zoster (Shingrix) 03/09/2020 10:57:00 AM EDT completed eCW1 ([facility]) Zoster (Shingrix) 03/09/2020 10:57:00 AM EDT completed eCW1 ([facility]) Zoster (Shingrix) 03/09/2020 10:57:00 AM EDT completed eCW1 ([facility]) Zoster (Shingrix) 03/09/2020 10:57:00 AM EDT completed eCW1 ([facility]) Zoster (Shingrix) 03/09/2020 10:57:00 AM EDT completed eCW1 ([facility]) Medications Medication Brand Name Start Date Product Form Dose Route Admi nistrative Instructions Pharmacy Instructions Status Indications Reaction Description Data Source(s) Ciprofloxacin 500 MG Oral Tablet [Cipro] Cipro 500 MG Cipro 500 MG 06/15/2020 12:00:00 AM EST 1.0 {tablet} active Ci pro 500 MG eCW1 ([facility]) Ciprofloxacin 500 MG Oral Tablet [Cipro] Cipro 500 MG Cipro 500 MG 06/15/2020 12:00:00 AM EST 1.0 {tablet} active Ci pro 500 MG eCW1 ([facility]) 500 mg 06/09/2020 12:00:00 AM EST tablet 360 TAKE TWO TABLETS BY MOUTH TWICE A DAY TAKE TWO TABLETS BY MOUTH TWICE A DAY SOLD: 06/13/2020 [facility] Sulfamethoxazole 800 MG / Trimethoprim 1 60 MG Oral Tablet [Bactrim] Bactrim DS 800-160 MG Bactrim DS 800-160 MG 05/31/2020 12:00:00 AM EST suspended Bactrim DS 800-160 MG eCW1 ([facility]) Sulfamethoxazole 800 MG / Trimethoprim 1 60 MG Oral Tablet [Bactrim] Bactrim DS 800-160 MG Bactrim DS 800-160 MG 05/31/2020 12:00:00 AM EST suspended Bactrim DS 800-160 MG eCW1 ([facility]) Sulfamethoxazole 800 MG / Trimethoprim 1 60 MG Oral Tablet [Bactrim] Bactrim DS 800-160 MG Bactrim DS 800-160 MG 05/31/2020 12:00:00 AM EST active Bactrim DS 800-160 MG eCW1 ([facility]) 5 mg 05/07/2020 12:00:00 AM EST tablet 30 TAKE ONE TABLET BY MOUTH EVERY DAY TAKE ONE TABLET BY MOUTH EVERY DAY SOLD: 05/11/2020 [facility] 5 mg 04/14/2020 12:00:00 AM EDT tablet 30 TAKE ONE TABLET BY MOUTH EVERY DAY TAKE ONE TABLET BY MOUTH EVERY DAY SOLD: 04/14/2020 [facility] Amlodipine 5 MG Oral Tablet Amlodipine Besylate 5 MG Amlodip ine Besylate 5 MG 04/13/2020 12:00:00 AM EDT 1.0 {tablet} active Amlodipine Besylate 5 MG eCW1 ([facility]) Amlodipine 5 MG Oral Tablet Amlodipine Besylate 5 MG Amlodip ine Besylate 5 MG 04/13/2020 12:00:00 AM EDT 1.0 {tablet} active Amlodipine Besylate 5 MG eCW1 ([facility]) Amlodipine 5 MG Oral Tablet Amlodipine Besylate 5 MG Amlodip ine Besylate 5 MG 04/13/2020 12:00:00 AM EDT 1.0 {tablet} active Amlodipine Besylate 5 MG eCW1 ([facility]) Amlodipine 5 MG Oral Tablet Amlodipine Besylate 5 MG Amlodip ine Besylate 5 MG 04/13/2020 12:00:00 AM EDT 1.0 {tablet} active Amlodipine Besylate 5 MG eCW1 ([facility]) Amlodipine 5 MG Oral Tablet Amlodipine Besylate 5 MG Amlodip ine Besylate 5 MG 04/13/2020 12:00:00 AM EDT 1.0 {tablet} active Amlodipine Besylate 5 MG eCW1 ([facility]) Amlodipine 5 MG Oral Tablet Amlodipine Besylate 5 MG Amlodip ine Besylate 5 MG 04/13/2020 12:00:00 AM EDT 1.0 {tablet} active Amlodipine Besylate 5 MG eCW1 ([facility]) Amlodipine 5 MG Oral Tablet Amlodipine Besylate 5 MG Amlodip ine Besylate 5 MG 04/13/2020 12:00:00 AM EDT 1.0 {tablet} active Amlodipine Besylate 5 MG eCW1 ([facility]) Amlodipine 5 MG Oral Tablet Amlodipine Besylate 5 MG Amlodip ine Besylate 5 MG 04/13/2020 12:00:00 AM EDT 1.0 {tablet} active Amlodipine Besylate 5 MG eCW1 ([facility]) Amlodipine 5 MG Oral Tablet Amlodipine Besylate 5 MG Amlodip ine Besylate 5 MG 04/13/2020 12:00:00 AM EDT 1.0 {tablet} active Amlodipine Besylate 5 MG eCW1 ([facility]) Amlodipine 5 MG Oral Tablet Amlodipine Besylate 5 MG Amlodip ine Besylate 5 MG 04/13/2020 12:00:00 AM EDT 1.0 {tablet} active Amlodipine Besylate 5 MG eCW1 ([facility]) Amlodipine 5 MG Oral Tablet Amlodipine Besylate 5 MG Amlodip ine Besylate 5 MG 04/13/2020 12:00:00 AM EDT 1.0 {tablet} active Amlodipine Besylate 5 MG eCW1 ([facility]) Amlodipine 5 MG Oral Tablet Amlodipine Besylate 5 MG Amlodip ine Besylate 5 MG 04/13/2020 12:00:00 AM EDT 1.0 {tablet} active Amlodipine Besylate 5 MG eCW1 ([facility]) Amlodipine 5 MG Oral Tablet Amlodipine Besylate 5 MG Amlodip ine Besylate 5 MG 04/13/2020 12:00:00 AM EDT 1.0 {tablet} active Amlodipine Besylate 5 MG eCW1 ([facility]) Amlodipine 5 MG Oral Tablet Amlodipine Besylate 5 MG Amlodip ine Besylate 5 MG 04/13/2020 12:00:00 AM EDT 1.0 {tablet} active Amlodipine Besylate 5 MG eCW1 ([facility]) Amlodipine 5 MG Oral Tablet Amlodipine Besylate 5 MG Amlodip ine Besylate 5 MG 04/13/2020 12:00:00 AM EDT 1.0 {tablet} active Amlodipine Besylate 5 MG eCW1 ([facility]) Amlodipine 5 MG Oral Tablet Amlodipine Besylate 5 MG Amlodip ine Besylate 5 MG 04/13/2020 12:00:00 AM EDT 1.0 {tablet} active Amlodipine Besylate 5 MG eCW1 ([facility]) Amlodipine 5 MG Oral Tablet Amlodipine Besylate 5 MG Amlodip ine Besylate 5 MG 04/13/2020 12:00:00 AM EDT 1.0 {tablet} active Amlodipine Besylate 5 MG eCW1 ([facility]) Amlodipine 5 MG Oral Tablet Amlodipine Besylate 5 MG Amlodip ine Besylate 5 MG 04/13/2020 12:00:00 AM EDT 1.0 {tablet} active Amlodipine Besylate 5 MG eCW1 ([facility]) Amlodipine 5 MG Oral Tablet Amlodipine Besylate 5 MG Amlodip ine Besylate 5 MG 04/13/2020 12:00:00 AM EDT 1.0 {tablet} active Amlodipine Besylate 5 MG eCW1 ([facility]) Amlodipine 5 MG Oral Tablet Amlodipine Besylate 5 MG Amlodip ine Besylate 5 MG 04/13/2020 12:00:00 AM EDT 1.0 {tablet} active Amlodipine Besylate 5 MG eCW1 ([facility]) Amlodipine 5 MG Oral Tablet Amlodipine Besylate 5 MG Amlodip ine Besylate 5 MG 04/13/2020 12:00:00 AM EDT 1.0 {tablet} active Amlodipine Besylate 5 MG eCW1 ([facility]) Amlodipine 5 MG Oral Tablet Amlodipine Besylate 5 MG Amlodip ine Besylate 5 MG 04/13/2020 12:00:00 AM EDT 1.0 {tablet} active Amlodipine Besylate 5 MG eCW1 ([facility]) 8 mg 04/06/2020 12:00:00 AM EDT tablet 9 TAKE ONE TABLET BY MOUTH EVERY 8 HOURS NEEDED TAKE ONE TABLET BY MOUTH EVERY 8 HOURS NEEDED SOLD: 04/06/2020 [facility] Insurance Providers Payer name Policy type / Coverage type Policy ID Covered republican ID Covered republican's relationship to harris Policy Harris Plan Information 'S ADMINISTRATION [id number] SP [id number] [facility] [id number] S [id number] [facility] [id number] SP [id number] MEDICARE [id number] S [id number] NON VA CARE [id number] S [id number] [id number] SP [id number] [facility] [id number] SP [id number] ANSI-Medicare Part B [id number] ANSI-Medicare Part B [id number] ANSI-Medicare Part B [id number] ANSI-Medicare Part B [id number] ANSI-Medicare Part B [id number] ANSI-Medicare Part B [id number] ANSI-Medicare Part B [id number] ANSI-Medicare Part B [id number] ANSI-Medicare Part B [id number] ANSI-Medicare Part B [id number] ANSI-Medicare Part B [id number] ANSI-Medicare Part B [id number] ANSI-Medicare Part B [id number] ANSI-Medicare Part B [id number] ANSI-Medicare Part B [id number] NON VA CARE [id number] MEDICARE [id number] S [id number] 78A MEDICARE [id number] S [id number] A NON VA CARE [id number] S [id number] NON VA CARE [id number] [facility] [id number] S [id number] A SELF-PAY UNAVAILABLE S UNAVAILA BLE Problems, Conditions, and Diagnoses Code Display Name Description Problem Type Effective Dates Data Source(s) R31.0 Gross hematuria Gross hematuria Problem 05/31/2020 12:0 0:00 AM EST [facility] ([facility]) N20.0 Nephrolithiasis Nephrolithiasis Problem 04/14/2020 12:0 0:00 AM EDT [facility] ([facility]) Z20.828 Contact with and (suspected) exposure to other viral communicable diseases CONTACT W AND EXPOSURE TO OTH VIRAL COMM Diagnosis 07/12/2020 02:12:00 PM [facility] Z20.822 CONTACT WITH AND (SUSPECTED) EXPOSURE TO COVID-19 CONTACT WITH AND (SUSPECTED) EXPOSURE TO COVID-19 Diagnosis 07/12/2020 02:12:00 PM [facility] N18.31 CHRONIC KIDNEY DISEASE, STAGE 3A CHRONIC KIDNEY DISEASE, STAGE 3A Diagnosis 06/05/2020 06:40:00 AM [facility] R82.90 Unspecified abnormal findings in urine U NSPECIFIED ABNORMAL FINDINGS IN URINE Diagnosis 04/23/2020 08:17:00 AM EDT [facility] N20.0 Calculus of kidney N20.0 Diagnosis 04/23/2020 08:17: 00 AM EDT [facility] E11.9 Type 2 diabetes mellitus without complic ations TYPE 2 DIABETES MELLITUS WITHOUT COMPLICATIONS Diagnosis 04/23/2020 08:17:00 AM EDT [facility]ital N17.8 Other acute kidney failure OTHER ACUTE KIDNEY FAILURE Diagnosis 04/15/2020 01:56:00 PM EDT [facility] B96.89 Other specified bacterial ag ents as the cause of diseases classified elsewhere OT BACTERIAL AGENTS THE CAUSE OF DISEASES CLAS Diagnosis 04/13/2020 01:11:00 PM EDT [facility] N39.0 Urinary tract infection, site not specif ied URINARY TRACT INFECTION, SITE NOT SPECIFIED Diagnosis 04/13/2020 01:11:00 PM EDT [facility] Surgeries/Procedures Procedure Description Date Indications Data Source(s) [id number] 07/18/2020 12:00:00 AM EST [facility] Medication: Lidocaine HCl 2% Jelly 5mL Intravesically 06/15/2020 12:00:00 AM EST eCW1 ([facility]) Results ID Date Data Source [id number] 07/20/2020 05:38:00 AM EST [facility] Name Value Range Interpretation Code Description Data Doreen rce(s) Supporting Document(s) Respiratory specimen severe acute respir atory syndrome coronavirus 2 (SARS-CoV-2) RNA Negative (qualifier value) [facility] This lab was ordered by [facility] and reported by [facility]. ID Date Data Source [id number] 07/12/2020 12:00:00 PM EST [facility] Name Value Range Interpretation Code Description Data Doreen rce(s) Supporting Document(s) SARS coronavirus 2 RNA Not Detected [facility] This lab was ordered by [place] [facility] and reported by [facility]. ID Date Data Source [id number] 07/14/2020 03:12:00 PM EST [facility] Performed at: [email or web address] [place] [address], [place], [place] [id number] Director: Irma Bosch PhD, Phone: [phone] Name Value Range Interpretation Code Description Data Doreen rce(s) Supporting Document(s) SARS-CoV-2, HARRIET Not Detected Not Detected N [facility] This nucleic acid amplification test was developed and itsperformance characteristics determined by [facility]. Nucleic acid amplification tests include RT-PCR and TMA. This test has not been FDA cleared orapproved. This test has been authorized by FDA under anEmergency Use Authorization (EUA). This test is onlyauthorized for the duration of time the declaration thatcircumstances exist justifying the authorization of theemergency use of in vitro diagnostic tests for detection [id number] virus and/or diagnosis of COVID-19 infectionunder section 564(b)(1) of the Act, 21 U.S.C. 360bbb-3(b)(1), unless the authorization is terminated or revokedsooner.When diagnostic testing is negative, the possibility of afalse negative result should be considered in the contextof a patient's recent exposures and the presence ofclinical signs and symptoms consistent with COVID-19. Anindividual without symptoms of COVID-19 and who is notshedding SARS-CoV-2 virus would expect to have a negative(not detected) result in this assay.Methodology: Nucleic Acid Amplification (HARRIET) ID Date Data Source [id number] 07/06/2020 12:03:00 PM EST [facility] CHEST, 4 VIEW SERIESComparison is made t o 02/13/11.PA, lateral and bilateral oblique views were obtained.The cardiac and mediastinal silhouettes appear normal. The lungs areclear. The bones and soft tissues are normal. The abdomen isunremarkable.IMPRESSION: NO ACUTE DISEASE IDENTIFIABLE.Dictated on 07/06/20 1203 by Sinan Wen M.D.Transcribed on 07/06/20 1209 by Linsey Peace by Sinan Wen M.D. on 07/07/20 0920Sign by: Sinan Wen M.D. Name Value Range Interpretation Code Description Data Doreen rce(s) Supporting Document(s) ID Date Data Source [id number] 06/07/2020 08:54:00 AM EST [facility] Name Value Range Interpretation Code Description Data Doreen rce(s) Supporting Document(s) HbA1C 8.10 % 3.8-5.6 H [facility] Suggested Diagnosis HbA1c% Diabet ic >/= 6.5Prediabetes 5.7%-6.4%Normal < 5.7% ID Date Data Source [id number] 06/05/2020 09:09:00 AM EST [facility] Name Value Range Interpretation Code Description Data Doreen rce(s) Supporting Document(s) ALBUMIN,URINE 8.5 mg/L 5-17 [facility] MICROALB/CREAT 10.0 mg/g CR 0-30 [facility] ital CREAT. URINE 85.0 mg/dL [facility] ID Date Data Source [id number] 06/05/2020 08:42:00 AM EST [facility] Name Value Range Interpretation Code Description Data [facility](s) Supporting Document(s) GLU 139 mg/dL 70-110 H [facility] Patients taking Sulfasalazine may have f alsely depressedGlucose levels. Patients taking Sulfapyridine may havefalsely elevated Glucose levels. Patients should be drawnfor Glucose before the initial administration of eitherdrug. BUN 28 mg/dL 7-23 H [facility] CRE 1.410 mg/dL 0.500-1.300 H [facility] GFR 52 mL/min [facility] CHLORIDE 105 mmol/L 99-110 [facility] NA 140 mmol/L 136-147 [facility] POTASSIUM 4.8 mmol/L 3.5-5.1 [facility] TCO2 28 mmol/L 20-33 [facility] ANION GAP 11.8 10.0-20.0 [facility] CA 9.1 mg/dL 8.3-10.7 [facility] ALKALINE PHOS 87 U/L 45-117 [facility] TP 7.0 g/dL 6.0-7.8 [facility] ALB 4.1 g/dL 3.5-5.0 [facility] ESRD Dialysis patient Albumin reference range: 2.9-4.4 g/dL GL 2.9 g/dL 2.3-3.5 [facility] A/G 1.4 1.0-2.5 [facility] T. BILIRUBIN 0.4 mg/dL 0.1-1.1 [facility] The Dimension [place] Total Bilirubin is n ot recommended forpatients undergoing treatment with eltrombopag (Promacta)due to the potential for falsely elevated results. ALTI 21 U/L 6-54 [facility] Patients taking Sulfasalazine and/or Sul fapyridine may havefalsely depressed ALT levels. Patients should be drawn forALT before the initial administration of either drug. AST 14 U/L 8-40 [facility] Patients taking Sulfasalazine and/or Sul fapyridine may havefalsely depressed AST levels. Patients should be drawn forAST before the initial administration of either drug. ID Date Data Source [id number] 06/05/2020 08:19:00 AM EST [facility] Name Value Range Interpretation Code Description Data Doreen rce(s) Supporting Document(s) URINE COLOR Yellow [facility] UAPR Clear [facility] UGLU Negative NEGATIVE [facility] URINE BILIRUBIN Negative NEGATIVE [facility] UKET Negative NEGATIVE [facility] USG 1.015 1.010-1.025 [facility] UBLO Negative NEGATIVE [facility] UpH 5.5 5.0-8.0 [facility] UPRO Negative Negative [facility] UUB 0.2 mg/dL 0.2-1.0 [facility] UNIT Negative Negative [facility] ULEU Negative Negative [facility] ID Date Data Source [id number] 06/05/2020 08:15:00 AM EST [facility] Name Value Range Interpretation Code Description Data Doreen rce(s) Supporting Document(s) WBC 6.39 x10E3/uL 4.0-10.5 [facility] RBC 4.29 x10E6/uL 4.70-6.00 [facility] Hemoglobin 13.0 g/dL 14.0-18.0 [facility] Hematocrit 38.9 % 42.0-52.0 [facility] MCV 90.7 fL 81.0-99.0 [facility] MCH 30.3 pg 27.0-31.0 [facility] MCHC 33.4 g/dL 32.7-35.6 [facility] RDW 13.2 % 11.5-14.0 [facility] Platelet count 259 x10E3/uL 150-450 [facility] ital MPV 10.3 fl 6.9-9.5 H [facility] Neutrophils 62.7 % 34-64 [facility] Lymphocytes 20.3 % 25-45 L [facility] Monocytes 12.8 % 1.7-10.6 H [facility] Eosinophils 3.3 % 0.4-7.0 N [facility] Basophils 0.3 % 0.1-2.0 N [facility] Imm. Gran. 0.6 % 0.1-2.0 N [facility] Abs. Neutro. 4.00 x10E3/uL 1.2-7.6 N [facility] Abs. Lymph. 1.30 x10E3/uL 1.0-3.5 N [facility] Abs. [place]. 0.82 x10E3/uL 0.1-1.0 [facility] Abs. Eosin. 0.21 x10E3/uL 0.1-0.7 N [facility] Abs. Baso. 0.02 x10E3/uL 0.0-0.1 N [facility] Abs. Imm. Gran. 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 05/31/2020 12:00:00 AM EST eC W1 ([facility]) Name Value Range Interpretation Code Description Data Doreen rce(s) Supporting Document(s) URINE eCW1 ([facility]) ID Date Data Source URINE CULTURE 05/31/2020 12:00:00 AM EST eCW1 ([facility]) Name Value Range Interpretation Code Description Data Doreen rce(s) Supporting Document(s) URINE CULTURE eCW1 ([facility]) ID Date Data Source UA URINALYSIS 05/31/2020 12:00:00 AM EST eCW1 ([facility]) Name Value Range Interpretation Code Description Data Doreen rce(s) Supporting Document(s) UA URINALYSIS eCW1 ([facility]) ID Date Data Source [id number] 04/25/2020 01:46:00 PM EST [facility] Name Value Range Interpretation Code Description Data Doreen rce(s) Supporting Document(s) [facility] ID Date Data Source [id number] 04/23/2020 10:50:00 AM EDT [facility] nathalia Name Value Range Interpretation Code Description Data Doreen rce(s) Supporting Document(s) ALBUMIN,URINE 10.2 mg/L 5-17 [facility] MICROALB/CREAT 10.5 mg/g CR 0-30 [facility] ital CREAT. URINE 97.0 mg/dL [facility] ID Date Data Source [id number] 04/23/2020 10:21:00 AM EDT [facility] nathalia Name Value Range Interpretation Code Description Data [facility](s) Supporting Document(s) GLU 191 mg/dL 70-110 H [facility] Patients taking Sulfasalazine may have f alsely depressedGlucose levels. Patients taking Sulfapyridine may havefalsely elevated Glucose levels. Patients should be drawnfor Glucose before the initial administration of eitherdrug. BUN 24 mg/dL 7-23 H [facility] CRE 1.510 mg/dL 0.500-1.300 H [facility] GFR 48 mL/min [facility] CHLORIDE 105 mmol/L 99-110 [facility] NA 140 mmol/L 136-147 [facility] POTASSIUM 4.4 mmol/L 3.5-5.1 [facility] TCO2 27 mmol/L 20-33 [facility] ANION GAP 12.4 10.0-20.0 [facility] CA 9.1 mg/dL 8.3-10.7 [facility] ALKALINE PHOS 75 U/L 45-117 [facility] TP 7.0 g/dL 6.0-7.8 [facility] ALB 3.8 g/dL 3.5-5.0 [facility] ESRD Dialysis patient Albumin reference range: 2.9-4.4 g/dL GL 3.2 g/dL 2.3-3.5 [facility] A/G 1.2 1.0-2.5 [facility] T. BILIRUBIN 0.3 mg/dL 0.1-1.1 [facility] The Dimension [place] Total Bilirubin is n ot recommended forpatients undergoing treatment with eltrombopag (Promacta)due to the potential for falsely elevated results. ALTI 25 U/L 6-54 [facility] Patients taking Sulfasalazine and/or Sul fapyridine may havefalsely depressed ALT levels. Patients should be drawn forALT before the initial administration of either drug. AST 11 U/L 8-40 [facility] Patients taking Sulfasalazine and/or Sul fapyridine may havefalsely depressed AST levels. Patients should be drawn forAST before the initial administration of either drug. ID Date Data Source [id number] 04/23/2020 10:03:00 AM EDT [facility] Name Value Range Interpretation Code Description Data Doreen rce(s) Supporting Document(s) URINE COLOR Yellow [facility] UAPR Clear [facility] UGLU Negative NEGATIVE [facility] URINE BILIRUBIN Negative NEGATIVE [facility] UKET Negative NEGATIVE [facility] USG 1.013 1.010-1.025 [facility] UBLO Negative NEGATIVE [facility] UpH 6.0 5.0-8.0 [facility] UPRO Negative Negative [facility] UUB 0.2 mg/dL 0.2-1.0 [facility] UNIT Negative Negative [facility] ULEU Negative Negative [facility] ID Date Data Source [id number] 04/23/2020 09:51:00 AM EDT [facility] Name Value Range Interpretation Code Description Data Doreen rce(s) Supporting Document(s) WBC 6.22 x10E3/uL 4.0-10.5 [facility] RBC 4.22 x10E6/uL 4.70-6.00 [facility] Hemoglobin 12.8 g/dL 14.0-18.0 [facility] Hematocrit 38.4 % 42.0-52.0 [facility] MCV 91.0 fL 81.0-99.0 [facility] MCH 30.3 pg 27.0-31.0 [facility] MCHC 33.3 g/dL 32.7-35.6 [facility] RDW 12.3 % 11.5-14.0 [facility] Platelet count 368 x10E3/uL 150-450 [facility] ital MPV 9.6 fl 6.9-9.5 H [facility] Neutrophils 69.1 % 34-64 H [facility] Lymphocytes 15.9 % 25-45 L [facility] Monocytes 10.1 % 1.7-10.6 N [facility] Eosinophils 3.5 % 0.4-7.0 [facility] Basophils 0.3 % 0.1-2.0 [facility] Imm. Gran. 1.1 % 0.1-2.0 [facility] Abs. Neutro. 4.29 x10E3/uL 1.2-7.6 [facility] Abs. Lymph. 0.99 x10E3/uL 1.0-3.5 [facility] Abs. [place]. 0.63 x10E3/uL 0.1-1.0 N [facility] l Abs. Eosin. 0.22 x10E3/uL 0.1-0.7 [facility] Abs. Baso. 0.02 x10E3/uL 0.0-0.1 N [facility] l Abs. Imm. Gran. 0.07 x10E3/uL 0.0-0.1 [facility] ANRBC% 0 % 0 [facility] ID Date Data Source [id number] 04/15/2020 03:19:00 PM EDT [facility] Name Value Range Interpretation Code Description Data Doreen rce(s) Supporting Document(s) GLU 109 mg/dL 70-110 [facility] Patients taking Sulfasalazine may have f alsely depressedGlucose levels. Patients taking Sulfapyridine may havefalsely elevated Glucose levels. Patients should be drawnfor Glucose before the initial administration of eitherdrug. BUN 27 mg/dL 7-23 H [facility] CRE 1.740 mg/dL 0.500-1.300 H [facility] GFR 41 mL/min [facility] CHLORIDE 104 mmol/L 99-110 [facility] NA 139 mmol/L 136-147 [facility] POTASSIUM 4.5 mmol/L 3.5-5.1 [facility] TCO2 26 mmol/L 20-33 [facility] ANION GAP 13.5 10.0-20.0 [facility] CA 9.0 mg/dL 8.3-10.7 N [facility] ID Date Data Source CT ABD&PEL WITH ORAL CONT ONLY - [id number] 04/14/2020 01:17:55 P M EDT eCW1 ([facility]) Name Value Range Interpretation Code Description Data Doreen rce(s) Supporting Document(s) eCW1 ([facility]) ID Date Data Source [id number] 04/14/2020 10:49:00 AM EDT [facility] Exam Number: [id number] OF EXAMINATIO N: 04/14/2020 10:24 EDTCT ABD&PEL WITH ORAL CONT ONLYHISTORY: Gross hematuria. Renal stone.TECHNIQUE:This CT exam was performed using the following dose reductiontechniques: automated exposure control, adjustment of mA and/or kVaccording to the patient's size, and use of iterative reconstructiontechnique.Standard contiguous axial spiral imaging was obtained from the dome ofthe diaphragms through the symphysis pubis with oral contrast andwithout intravenous contrast administration and with coronalreformatting.FINDINGS:Lower thorax: 2 small nodules within the right lower lobe unchangedsince the prior CT scan of 2017ABDOMEN:Liver: Unremarkable unenhancedGallbladder and bile ducts: UnremarkablePancreas: UnremarkableSpleen: UnremarkableAdrenals: UnremarkableKidneys and ureters: 2 mm nonobstructive stone upper pole of leftkidney. Previously noted cyst of each kidney, grossly unchanged. Thereis mild right-sided hydroureteronephrosis without any definite stonesalong the course of the right ureterStomach and bowel: UnremarkableAppendix: No appendicitisPELVIS:Bladder: Nondistended and unopacified therefore unable to adequatelyevaluateReproductive: UnremarkableNo free fluid or lymphadenopathyIMPRESSION:Mild right-sided hydroureter without any definite stones. This inconjunction with poor evaluation of the bladder and history of grosshematuria warrants cystoscopy preferably with a retrograde study.Nonobstructive stone of left kidney as well as stable cyst of eachkidneyElectronically signed in [id number] by: Leena Lincoln M.D. 04/14/202010:42 EDT Reported By: Laurent LINCOLN M.D. Signed By: Tanika LINCOLN M.D. Name Value Range Interpretation Code Description Data [facility](s) Supporting Document(s) ID Date Data Source [id number] 04/13/2020 02:17:00 PM EDT [facility] Name Value Range Interpretation Code Description Data [facility](s) Supporting Document(s) GLU 163 mg/dL 70-110 H [facility] Patients taking Sulfasalazine may have f alsely depressedGlucose levels. Patients taking Sulfapyridine may havefalsely elevated Glucose levels. Patients should be drawnfor Glucose before the initial administration of eitherdrug. BUN 35 mg/dL 7-23 H [facility] CRE 2.350 mg/dL 0.500-1.300 H [facility] GFR 29 mL/min [facility] CHLORIDE 101 mmol/L 99-110 [facility] NA 136 mmol/L 136-147 [facility] POTASSIUM 4.8 mmol/L 3.5-5.1 [facility] TCO2 28 mmol/L 20-33 [facility] ANION GAP 11.8 10.0-20.0 [facility] CA 9.3 mg/dL 8.3-10.7 [facility] ALKALINE PHOS 91 U/L 45-117 [facility] TP 7.2 g/dL 6.0-7.8 [facility] ALB 3.3 g/dL 3.5-5.0 [facility] ESRD Dialysis patient Albumin reference range: 2.9-4.4 g/dL GL 3.9 g/dL 2.3-3.5 [facility] A/G 0.8 1.0-2.5 [facility] T. BILIRUBIN 0.4 mg/dL 0.1-1.1 [facility] The [facility]ension [place] Total Bilirubin is n ot recommended forpatients undergoing treatment with eltrombopag (Promacta)due to the potential for falsely elevated results. ALTI 69 U/L 6-54 H [facility] Patients taking Sulfasalazine and/or Sul fapyridine may havefalsely depressed ALT levels. Patients should be drawn forALT before the initial administration of either drug. AST 40 U/L 8-40 [facility] Patients taking Sulfasalazine and/or Sul fapyridine may havefalsely depressed AST levels. Patients should be drawn forAST before the initial administration of either drug. ID Date Data Source [id number] 04/13/2020 01:52:00 PM EDT [facility] Name Value Range Interpretation Code Description Data Doreen rce(s) Supporting Document(s) WBC 8.27 x10E3/uL 4.0-10.5 [facility] RBC 4.16 x10E6/uL 4.70-6.00 [facility] Hemoglobin 12.5 g/dL 14.0-18.0 [facility] Hematocrit 38.3 % 42.0-52.0 [facility] MCV 92.1 fL 81.0-99.0 [facility] MCH 30.0 pg 27.0-31.0 [facility] MCHC 32.6 g/dL 32.7-35.6 [facility] RDW 11.9 % 11.5-14.0 [facility] Platelet count 353 x10E3/uL 150-450 [facility] ital MPV 10.0 fl 6.9-9.5 H [facility] Neutrophils 75.0 % 34-64 H [facility] Lymphocytes 9.4 % 25-45 [facility] Monocytes 8.6 % 1.7-10.6 [facility] Eosinophils 2.8 % 0.4-7.0 [facility] Basophils 0.2 % 0.1-2.0 [facility] Imm. Gran. 4.0 % 0.1-2.0 H [facility] Abs. Neutro. 6.20 x10E3/uL 1.2-7.6 [facility] Abs. Lymph. 0.78 x10E3/uL 1.0-3.5 L [facility] Abs. [place]. 0.71 x10E3/uL 0.1-1.0 [facility]. Eosin. 0.23 x10E3/uL 0.1-0.7 [facility] Abs. Baso. 0.02 x10E3/uL 0.0-0.1 [facility] Abs. Imm. Gran. 0.33 x10E3/uL 0.0-0.1 [facility] ANRBC% 0 % 0 N [facility] ID Date Data Source [id number] 04/14/2020 10:04:00 AM EDT [facility] Name Value Range Interpretation Code Description Data Doreen rce(s) Supporting Document(s) ALBUMIN,URINE 2020.0 mg/L 5-17 [facility] MICROALB/CREAT 1134.8 mg/g CR 0-30 [facility] CREAT. URINE 178.0 mg/dL N [facility] l ID Date Data Source [id number] 04/13/2020 02:36:00 PM EDT [facility] Urine Bilirubin test must be confirmed w ith Ictotest Method Urine Bilirubin test must be confirmed w ith Ictotest Method Name Value Range Interpretation Code Description Data Doreen rce(s) Supporting Document(s) URINE COLOR ARIADNE [facility] UAPR Cloudy [facility] UGLU Negative NEGATIVE [facility] URINE BILIRUBIN Negative NEGATIVE [facility] UKET Negative NEGATIVE [facility] USG 1.016 1.010-1.025 [facility] UBLO 3+ NEGATIVE [facility] UpH 5.5 5.0-8.0 [facility] UPRO 3+ Negative [facility] UUB 1.0 mg/dL 0.2-1.0 [facility] UNIT Negative Negative [facility] ULEU 2+ Negative [facility] ID Date Data Source [id number] 04/13/2020 02:36:00 PM EDT [facility] Urine Bilirubin test must be confirmed w ith Ictotest Method Urine Bilirubin test must be confirmed w ith Ictotest Method Name Value Range Interpretation Code Description Data Doreen rce(s) Supporting Document(s) URINE RBC >200 RBCs/HPF NONE SEEN [facility] URINE WBC 51-100 WBCs/HPF [facility]INE CULTURE HAS BEEN ADDED TO THIS S PECIMEN URINE BACTERIA Moderate [facility] URINE CULTURE HAS BEEN ADDED TO THIS S PECIMEN URINE EPI. Few NONE SEEN N [facility] ID Date Data Source [id number] 04/13/2020 04:10:24 AM EDT eCW1 ([facility]) Name Value Range Interpretation Code Description Data Doreen rce(s) Supporting Document(s) ARIADNE URINE COLOR eCW1 ([facility]) Negative URINE BILIRUBIN eCW1 ([facility]) Negative UGLU eCW1 ([facility]) Cloudy UAPR eCW1 ([facility]) Negative UKET eCW1 ([facility]) 3+ UBLO eCW1 ([facility]) 5.5 UpH eCW1 ([facility]) 1.016 USG eCW1 ([facility]) 3+ UPRO eCW1 ([facility]) 1.0 UUB eCW1 ([facility]) Negative UNIT eCW1 ([facility]) 2+ ULEU eCW1 ([facility]) ID Date Data Source CMP COMPREHENSIVE METABOLIC PROFILE 04/13/2020 04:10:21 AM E DT eCW1 ([facility]) Name Value Range Interpretation Code Description Data Doreen rce(s) Supporting Document(s) 163 GLU eCW1 ([facility]) 2.350 CRE eCW1 ([facility]) 35 BUN eCW1 ([facility]) 101 CHLORIDE eCW1 ([facility]) 136 NA eCW1 ([facility]) 29 GFR eCW1 ([facility]) 11.8 ANION GAP eCW1 ([facility]) 28 TCO2 eCW1 ([facility]) 4.8 POTASSIUM eCW1 ([facility]) 9.3 CA eCW1 ([facility]) 7.2 TP eCW1 ([facility]) 91 ALKALINE PHOS eCW1 ([facility]) 3.3 ALB eCW1 ([facility]) 3.9 GL eCW1 ([facility]) 0.8 A/G eCW1 ([facility]) 40 AST eCW1 ([facility]) 69 ALTI eCW1 ([facility]) 0.4 T. BILIRUBIN eCW1 ([facility]) ID Date Data Source CBC 04/13/2020 02:56:41 AM EDT eCW1 ([facility]) Name Value Range Interpretation Code Description Data Doreen rce(s) Supporting Document(s) 8.27 WBC eCW1 ([facility]) 4.16 RBC eCW1 ([facility]) 38.3 Hematocrit eCW1 ([facility]) 12.5 Hemoglobin eCW1 ([facility]) 92.1 MCV eCW1 ([facility]) 30.0 MCH eCW1 ([facility]) 11.9 RDW eCW1 ([facility]) 32.6 MCHC eCW1 ([facility]) 9.4 Lymphocytes eCW1 ([facility]) 353 Platelet count eCW1 ([facility]) 75.0 Neutrophils eCW1 ([facility]) 10.0 MPV eCW1 ([facility]) 8.6 Monocytes eCW1 ([facility]) 0.2 Basophils eCW1 ([facility]) 2.8 Eosinophils eCW1 ([facility]) 0.78 Abs. Lymph. eCW1 ([facility]) 6.20 Abs. Neutro. eCW1 ([facility]) 4.0 Imm. Gran. eCW1 ([facility]) 0.71 Abs. [place]. eCW1 ([facility]) 0 ANRBC% eCW1 ([facility]) 0.33 Abs. Imm. Gran. eCW1 ([facility]) 0.23 Abs. Eosin. eCW1 ([facility]) 0.02 Abs. Baso. eCW1 ([facility]) Procedure Social History Code Duration Value Status Description Data Source(s ) Smoking 06/15/2020 12:00:00 AM EST Former Smoker completed Former Smoker eCW1 ([facility]) Smoking 06/15/2020 12:00:00 AM EST Former Smoker completed Former Smoker eCW1 ([facility]) Smoking 06/08/2020 12:00:00 AM EST Never Smoker completed Never S moker eCW1 ([facility]) Smoking 06/08/2020 12:00:00 AM EST Never Smoker completed Never S moker eCW1 ([facility]) Smoking 06/08/2020 12:00:00 AM EST Never Smoker completed Never S moker eCW1 ([facility]) Smoking 06/08/2020 12:00:00 AM EST Never Smoker completed Never S moker eCW1 ([facility]) Smoking 06/08/2020 12:00:00 AM EST Never Smoker completed Never S moker eCW1 ([facility]) Smoking 06/08/2020 12:00:00 AM EST Never Smoker completed Never S moker eCW1 ([facility]) Smoking 05/31/2020 12:00:00 AM EST Former Smoker completed Former Smoker eCW1 ([facility]) Smoking 04/26/2020 12:00:00 AM EST Never Smoker completed Never S moker eCW1 ([facility]) Smoking 04/26/2020 12:00:00 AM EST Never Smoker completed Never S moker eCW1 ([facility]) Smoking 04/26/2020 12:00:00 AM EST Never Smoker completed Never S moker eCW1 ([facility]) Smoking 04/26/2020 12:00:00 AM EST Never Smoker completed Never S moker eCW1 ([facility]) Smoking 04/26/2020 12:00:00 AM EST Never Smoker completed Never S moker eCW1 ([facility]) Smoking 04/26/2020 12:00:00 AM EST Never Smoker completed Never S moker eCW1 ([facility]) Smoking 04/26/2020 12:00:00 AM EST Never Smoker completed Never S moker eCW1 ([facility]) Smoking 04/26/2020 12:00:00 AM EST Never Smoker completed Never S moker eCW1 ([facility]) Smoking 04/15/2020 12:00:00 AM EDT Never Smoker completed Never S moker eCW1 ([facility]) Smoking 04/15/2020 12:00:00 AM EDT Never Smoker completed Never S moker eCW1 ([facility]) Smoking 04/15/2020 12:00:00 AM EDT Never Smoker completed Never S moker eCW1 ([facility]) Smoking 04/15/2020 12:00:00 AM EDT Never Smoker completed Never S moker eCW1 ([facility]) Smoking 04/15/2020 12:00:00 AM EDT Never Smoker completed Never S moker eCW1 ([facility]) Smoking 04/15/2020 12:00:00 AM EDT Never Smoker completed Never S moker eCW1 ([facility]) Smoking 04/15/2020 12:00:00 AM EDT Never Smoker completed Never S moker eCW1 ([facility]) Smoking 04/15/2020 12:00:00 AM EDT Never Smoker completed Never S moker eCW1 ([facility]) Vital Signs ID Date Data Source UNK Name Value Range Interpretation Code Description Data Source(s) Diastolic blood pressure 64 mm[Hg] 64 mm[Hg] eCW1 ([facility]) Systolic blood pressure 138 mm[Hg] 138 mm[Hg] e CW1 ([facility]) Body temperature 96.1 [degF] 96.1 [degF] eCW1 ( [facility]) Respiratory rate 18 /min 18 /min eCW1 ([facility]) Heart rate 76 /min 76 /min eCW1 ([facility]) Body mass index (BMI) [Ratio] 27.83 kg/m2 27.83 kg/m2 eCW1 ([facility]) Body height 72 [in_i] 72 [in_i] eCW1 ([facility]) Body weight 205.2 [lb_av] 205.2 [lb_av] eCW1 ([facility]) Diastolic blood pressure 80 mm[Hg] 80 mm[Hg] eCW1 ([facility]) Systolic blood pressure 132 mm[Hg] 132 mm[Hg] e CW1 ([facility]) Oxygen saturation in Arterial blood by Pulse oximetry 99 % 99 % W1 ([facility]) Heart rate 80 /min 80 /min eCW1 ([facility]) Body mass index (BMI) [Ratio] 28.87 kg/m2 28.87 kg/m2 W1 ([facility]) Body weight 207 [lb_av] 207 [lb_av] eCW1 ([facility]) Body height 71 [in_i] 71 [in_i] eCW1 ([facility]) Diastolic blood pressure 80 mm[Hg] 80 mm[Hg] eCW1 ([facility]) Systolic blood pressure 150 mm[Hg] 150 mm[Hg] e CW1 ([facility]) Body temperature 97.3 [degF] 97.3 [degF] eCW1 ( [facility]) Respiratory rate 18 /min 18 /min eCW1 ([facility]) Heart rate 89 /min 89 /min eCW1 ([facility]) Body mass index (BMI) [Ratio] 28.29 kg/m2 28.29 kg/m2 eCW1 ([facility]) Body height 72 [in_i] 72 [in_i] eCW1 ([facility]) Body weight 208.6 [lb_av] 208.6 [lb_av] eCW1 ([facility]) Diastolic blood pressure 80 mm[Hg] 80 mm[Hg] eCW1 ([facility]) Systolic blood pressure 132 mm[Hg] 132 mm[Hg] e CW1 ([facility]) Oxygen saturation in Arterial blood by Pulse oximetry 99 % 99 % eCW1 ([facility]) Heart rate 94 /min 94 /min eCW1 ([facility]) Body mass index (BMI) [Ratio] 28.31 kg/m2 28.31 kg/m2 eCW1 ([facility]) Body weight 203 [lb_av] 203 [lb_av] eCW1 ([facility]) Body height 71 [in_i] 71 [in_i] eCW1 ([facility]) Diastolic blood pressure 72 mm[Hg] 72 mm[Hg] eCW1 ([facility]) Systolic blood pressure 126 mm[Hg] 126 mm[Hg] e CW1 ([facility]) Oxygen saturation in Arterial blood by Pulse oximetry 96 % 96 % eCW1 ([facility]) Heart rate 78 /min 78 /min eCW1 ([facility]) Body mass index (BMI) [Ratio] 28.45 kg/m2 28.45 kg/m2 eCW1 ([facility]) Body weight 92.53 kg 92.53 kg eCW1 ([facility]) Body weight 204 [lb_av] 204 [lb_av] eCW1 ([facility]) Body height 71 [in_i] 71 [in_i] eCW1 ([facility]) Diastolic blood pressure 60 mm[Hg] 60 mm[Hg] eCW1 ([facility]) Systolic blood pressure 92 mm[Hg] 92 mm[Hg] e CW1 ([facility]) Oxygen saturation in Arterial blood by Pulse oximetry 97 % 97 % eCW1 ([facility]) Heart rate 81 /min 81 /min W1 ([facility]) Body mass index (BMI) [Ratio] 28.81 kg/m2 28.81 kg/m2 eCW1 ([facility]) Body weight 93.71 kg 93.71 kg eCW1 ([facility]) Body weight 206.6 [lb_av] 206.6 [lb_av] eCW1 ([facility]) Body height 71 [in_i] 71 [in_i] eCW1 ([facility]) Patient Treatment Plan of Care Planned Activity Planned Date Details Description Data Source (s) Ciprofloxacin 500 MG Oral Tablet [Cipro] 06/15/2020 12:00:00 AM EST eCW1 ([facility]) Ciprofloxacin 500 MG Oral Tablet [Cipro] 06/15/2020 12:00:00 AM EST eCW1 ([facility]) Sulfamethoxazole 800 MG / Trimethoprim 160 MG Oral Tab let [Bactrim] 05/31/2020 12:00:00 AM EST eCW1 ([facility]) Amlodipine 5 MG Oral Tablet 04/13/2020 12:00:00 AM EDT eCW1 ([facility]) Amlodipine 5 MG Oral Tablet 04/13/2020 12:00:00 AM EDT eCW1 ([facility]) Amlodipine 5 MG Oral Tablet 04/13/2020 12:00:00 AM EDT eCW1 ([facility]) Amlodipine 5 MG Oral Tablet 04/13/2020 12:00:00 AM EDT eCW1 ([facility]) Amlodipine 5 MG Oral Tablet 04/13/2020 12:00:00 AM EDT eCW1 ([facility]) Amlodipine 5 MG Oral Tablet 04/13/2020 12:00:00 AM EDT eCW1 ([facility]) Amlodipine 5 MG Oral Tablet 04/13/2020 12:00:00 AM EDT eCW1 ([facility])
--- OUTSIDE RECORDS SUMMARY | 2020-07-23 09:27 | CCD ---
Author Author [facility] Organization [facility] Address Unknown Phone Unavailable Care Team Providers Care Interviewing Clerk Name Role Phone Jose M Handy Unavailable PROBLEMS Type Condition ICD9-CM Code [id number] Code Onset Dates Condition S tatus SNOMED Code Notes Problem Kidney stones N20.0 Active 28942132 Problem Nephrolithiasis N20.0 Active 75615297 Problem DM type 2 (diabetes mellitus, type 2) E11.9 Ac tive 51899117 Problem Hypertension I10 Active 03032430 Problem Hyperlipemia E78.5 Active 78977184 ALLERGIES No Known Allergies ENCOUNTERS from 1945 to 2020-04-23 Encounter Location Date Provider Diagnosis [facility] Nephrology [address] [facility] [address] [place] [address] Mar, Jose M Handy Kidney stones N20.0 IMMUNIZATIONS Vaccine Route Administration Date Status Zoster [...] MEDICATIONS Medication SIG (Take, Route, Frequency, Duration) Start Date En d Date Status Zoloft 100 MG 1 1/2 tablet Orally Once a day Active Amlodipine Besylate 5 MG 1 tablet Orally Once a day for 30 day(s ) Mar, Active Maxzide-25 37.5-25 MG 1 tablet in the morning Orally Once a day Not-Taking Cialis 20 MG 1 tablet, as needed Orally Once a day Active Aspirin Adult Low Dose 81 MG 1 tablet Orally Once a day Active Metformin HCl 500 MG 1 tablet with meals Orally Twice a day for 90 days Active Pravastatin Sodium 20 MG 1 tablet Orally Once a day for 0 days 2016 Active Dilacor XR 240 MG 1 capsule on an empty stomac h in the morning Orally Once a day Active Multivitamin Adult - as directed Orally Apr, A ctive GlipiZIDE 10 MG 1/2 tablet Orally two times daily Active PROCEDURES No Information RESULTS No Results REASON FOR VISIT pt. message MEDICAL (GENERAL) HISTORY Type Description Date Medical History DM type 2 (diabetes mellitus, type 2) Medical History Hyperlipemia Medical History Hypertension Medical History Gout Medical History Renal stones Surgical History appendectomy as a child Hospitalization History see surgical hx Goals Section No Information Health Concerns No Information MEDICAL EQUIPMENT No Information MENTAL STATUS No Information FUNCTIONAL STATUS No Information ASSESSMENTS Encounter Date Diagnosis Notes Mar, Kidney stones (ICD-10 - N20.0) PLAN OF TREATMENT Medication Medication Name Sig Start Date Stop Date Metformin HCl 500 MG 1 tablet with meals Orally Twice a day for 90 days Next Appt Details Provider Name:Jose M Handy, 2020-11-0 2 02:30:00 PM, [address] [facility], [address], [place], [address], Insurance Providers Payer Name Payer Address Payer Phone Insured Name Patient Relati onship to Insured Coverage Start Date Coverage End Date Medicare [address] [facility] [id number] [place]
--- OUTSIDE RECORDS SUMMARY | 2020-07-23 09:27 | CCD ---
Author Author [facility] er Organization [facility] er Address Unknown Phone Unavailable Care Team Providers Care Firer Powerhouse Name Role Phone Jose M Handy Unavailable PROBLEMS Type Condition ICD9-CM Code [id number] Code Onset Dates Condition S tatus SNOMED Code Notes Problem Kidney stones N20.0 Active 52337728 Problem Nephrolithiasis N20.0 Active 10830985 Problem DM type 2 (diabetes mellitus, type 2) E11.9 Ac tive 20309473 Problem Hypertension I10 Active 54255236 Problem Hyperlipemia E78.5 Active 34241643 ALLERGIES No Known Allergies ENCOUNTERS from 1945 to 2020-05-07 Encounter Location Date Provider Diagnosis [facility] Nephrology [address] [facility] [address] [place] [address] Apr, Jose M Handy IMMUNIZATIONS Vaccine Route Administration [...] Duration) Start Date En d Date Status Dilacor XR 240 MG 1 [...] - as directed Orally Apr, A ctive Zoloft 100 MG 1 1/2 tablet Orally Once a day Active Amlodipine Besylate 5 MG 1 tablet Orally Once a day for 30 day(s ) Mar, Active Aspirin Adult Low Dose 81 MG 1 tablet Orally Once a day Active Pravastatin Sodium 20 MG 1 tablet Orally Once a day for 0 days 14 2016 Active PROCEDURES No Information RESULTS No Results REASON FOR VISIT Referral MEDICAL (GENERAL) HISTORY Type Description Date Medical [...] Next Appt Details Provider Name:Jose M Handy, 2019-12-0 4 03:15:00 PM, [address] [facility], [address], [place], [address], Insurance Providers Payer Name Payer Address Payer Phone Insured Name Patient Relati onship to Insured Coverage Start Date Coverage End Date Medicare [address] [facility] [address] [place]
--- OUTSIDE RECORDS SUMMARY | 2020-07-23 09:27 | CCD ---
Author Author [facility] er Organization [facility] er Address Unknown Phone Unavailable Care Team Providers Care Baseball Hand Sewer Name Role Phone Jose M Handy Unavailable PROBLEMS Type Condition ICD9-CM Code [id number] Code Onset Dates Condition S tatus SNOMED Code Notes Problem Kidney stones N20.0 Active 69296250 Problem Nephrolithiasis N20.0 Active 95589734 Problem DM type 2 (diabetes mellitus, type 2) E11.9 Ac tive 03152187 Problem Hypertension I10 Active 08192799 Problem Hyperlipemia E78.5 Active 53729118 ALLERGIES No Known Allergies ENCOUNTERS from 1945 to 2020-05-11 Encounter Location Date Provider Diagnosis [facility] [address] [facility] [address] [place] [address] Apr, Jose M Handy IMMUNIZATIONS Vaccine Route [...] RESULTS No Results REASON FOR VISIT Referral Follow up MEDICAL (GENERAL) HISTORY Type Description Date Medical [...] M Handy, 2019-12-0 4 03:15:00 PM, [address] [facility], [address], [place], [address], Insurance Providers Payer Name Payer Address Payer Phone Insured Name Patient Relati onship to Insured Coverage Start Date Coverage End Date Medicare [address] [facility] [address] [place]
--- OUTSIDE RECORDS SUMMARY | 2020-07-23 09:27 | CCD ---
Author Author [facility] D[facility] er Organization [facility] D[facility] er Address Unknown Phone Unavailable Care Team Providers Care Security Officer Name Role Phone Jose M Handy Unavailable PROBLEMS Type Condition ICD9-CM Code [id number] Code Onset Dates Condition S tatus SNOMED Code Notes Problem Kidney stones N20.0 Active 42845446 Problem Nephrolithiasis N20.0 Active 90642224 Problem DM type 2 (diabetes mellitus, type 2) E11.9 Ac tive 09463108 Problem Hypertension I10 Active 30042138 Problem Hyperlipemia E78.5 Active 44679417 ALLERGIES No Known Allergies ENCOUNTERS from 1945 to 2020-05-10 Encounter Location Date Provider Diagnosis [facility] [address] [facility] [address] [place] [address] Apr, Jose M Handy IMMUNIZATIONS Vaccine Route [...] Information RESULTS No Results REASON FOR VISIT Referral/ Urology MEDICAL (GENERAL) HISTORY Type Description Date Medical [...] M Handy, 2019-12-0 4 03:15:00 PM, [address] [facility], [address], [place], [address], Insurance Providers Payer Name Payer Address Payer Phone Insured Name Patient Relati onship to Insured Coverage Start Date Coverage End Date Medicare [address] [facility] [address] [place]
--- OUTSIDE RECORDS SUMMARY | 2020-07-23 09:27 | CCD ---
Author Author [facility] D[facility] er Organization [facility] D[facility] er Address Unknown Phone Unavailable Care Team Providers Care Gymnastics Coach Name Role Phone Jose M Handy Unavailable PROBLEMS Type Condition ICD9-CM Code [id number] Code Onset Dates Condition S tatus SNOMED Code Notes Problem Kidney stones N20.0 Active 45275014 Problem Nephrolithiasis N20.0 Active 85611359 Problem DM type 2 (diabetes mellitus, type 2) E11.9 Ac tive 96956556 Problem Hypertension I10 Active 88382339 Problem Hyperlipemia E78.5 Active 77760329 ALLERGIES No Known Allergies ENCOUNTERS from 1945 to 2020-04-27 Encounter Location Date Provider Diagnosis [facility] Nephrology [address] [facility] [address] [place] [address] Apr, Jose M Handy Stage 3a chronic kidney dise ase N18.31 ; Hypertension I10 and DM type 2 (diabetes mellitus, type 2) E11.9 IMMUNIZATIONS Vaccine Route Administration Date Status Zoster [...] No Information VITAL SIGNS Height 71 in Apr, Weight 203 lbs Apr, BMI 28.31 kg/m2 Apr, Heart Rate 94 /min Apr, Oximetry 99 % Apr, Blood pressure systolic 132 mm Hg Apr, Blood pressure diastolic 80 mm Hg Apr, MEDICATIONS Medication SIG (Take, Route, Frequency, Duration) Start Date En d Date Status Zoloft 100 MG 1 1/2 tablet Orally Once a day Active Amlodipine Besylate 5 MG 1 tablet Orally Once a day for 30 day(s ) Mar, Active Maxzide-25 37.5-25 MG 1 tablet in the morning Orally Once a day Not-Taking Pravastatin Sodium 20 MG 1 tablet Orally Once a day for 0 days 14 2016 Active Cialis 20 MG 1 tablet, as needed Orally Once a day Active GlipiZIDE 10 MG 1/2 tablet Orally two times daily Active Aspirin Adult Low Dose 81 MG 1 tablet Orally Once a day Active Dilacor XR 240 MG 1 capsule on an empty stomac h in the morning Orally Once a day Active Metformin HCl 500 MG 2 tablets Orally Twice a day for 90 days Active Multivitamin Adult - as directed Orally Apr, A ctive PROCEDURES No Information RESULTS No Results REASON FOR VISIT 10 day f/u MEDICAL (GENERAL) HISTORY Type Description Date [...] No Information ASSESSMENTS Encounter Date Diagnosis Notes Apr, DM type 2 (diabetes mellitus, type 2) (I CD-10 - E11.9) Apr, Hypertension (ICD-10 - I10) Apr, Stage 3a chronic kidney disease (ICD-10 - N18.31) PLAN OF TREATMENT Medication Medication Name Sig Start Date Stop Date Metformin HCl 500 MG 2 tablets Orally Twice a day for 90 days Future Test Test Name Order Date CBC 20200524 CMP COMPREHENSIVE METABOLIC PROFILE 20200524 MICROALBUMIN/CREATININE RATIO 20200524 URINALYSIS 20200524 HEMOGLOBIN A1C 20200524 Next Appt Details 4 Weeks Reason: Provider Name:Jose M Handy, 2019-12-0 4 03:15:00 PM, [address] [facility], [address], [place], [address], Insurance Providers Payer Name Payer Address Payer Phone Insured Name Patient Relati onship to Insured Coverage Start Date Coverage End Date Medicare [address] [place] [id number] [place] self
[2020-07-23] MEDS ORDERED: dexameTHASONE 4 MG/ML 1ML VIAL (J1100 PER 1MG) As Ordered ONE (11:42)
[2020-07-23] MEDS ORDERED: fentaNYL 100 MCG/2 ML INJECTION (J3010) As Ordered ONE ×2 (11:42→11:48)
[2020-07-23] MEDS ORDERED: ONDANSETRON 4MG/2ML VIAL As Ordered ONE (11:42)
[2020-07-23] MEDS ORDERED: METOCLOPRAMIDE INJ 10MG/2ML VIAL (J2765 PER 1) As Ordered ONE (11:42)
[2020-07-23] MEDS ORDERED: LIDOCAINE 2% 100MG/5ML SDV (FOR ANES.) As Ordered ONE (11:42)
[2020-07-23] MEDS ORDERED: MIDAZOLAM INJ 2MG/2ML VIAL (J2250 PER 1MG) As Ordered ONE (11:42)
[2020-07-23] MEDS ORDERED: ROCURONIUM BROMIDE 50 MG/5 ML VIAL As Ordered ONE ×2 (11:42→12:02)
[2020-07-23] MEDS ORDERED: SUGAMMADEX SODIUM 500 MG/5 ML VIAL (BRIDION) As Ordered ONE (11:42)
[2020-07-23] MEDS ORDERED: propofoL 200 MG/20 ML VIAL As Ordered ONE (11:42)
[2020-07-23] MEDS ORDERED: ACETAMINOPHEN 1000MG 100ML IV BTL (OFIRMEV) (J0131 PER 10MG) As Ordered ONE (11:45)
[2020-07-23] MEDS ORDERED: oxyCODONE 5MG TAB As Ordered ONE (12:51)
[2020-07-23] MEDS ORDERED: ONDANSETRON 4MG/2ML VIAL IV PRN (13:15)
[2020-07-23] MEDS ORDERED: LR 1,000 ML IV SCH (13:15)
[2020-07-23] MEDS ORDERED: oxyCODONE 5MG TAB PO PRN (13:15)
[2020-07-23] MEDS ORDERED: ACETAMINOPHEN TAB 650MG DOSE (2X325MG) PO PRN (13:15)
[2020-07-23] MEDS ORDERED: fentaNYL 100 MCG/2 ML INJECTION (J3010) IV PRN (13:15)
[2020-07-23 13:35] VITALS: BP 134/92
--- NOTE | 2020-07-23 15:04 | RO ---
OPERATIVE NOTE DATE OF OPERATION: 07/23/2020 PREOPERATIVE DIAGNOSIS: Bladder tumor. POSTOPERATIVE DIAGNOSIS: Bladder tumor. PROCEDURE: Cystoscopy, transurethral resection of bladder tumor (between 2 and 5 cm); urethral meatal dilation; examination under anesthesia. SURGEON: Yunior Oviedo MD BAG ADJUSTER: None. ANESTHESIA: General. OPERATIVE INDICATIONS: This is a 74-year-old male who was found to have bladder tumors on recent office cystoscopy. He was brought to the operating room today for treatment. DESCRIPTION OF PROCEDURE: The patient was brought to the operating room and general anesthesia was induced. Prophylactic antibiotics were infused. He was then placed in the dorsal lithotomy position and bimanual digital rectal examination under anesthesia was performed. It was negative for palpable bladder masses. The bladder was freely mobile. There were no prostate nodules. The prostate was mildly enlarged. At this point the patient was prepped and draped in usual sterile fashion. At this point I attempted to insert a resectoscope into the meatus but it would not go as the meatus was a little bit too narrow. I therefore had to dilate the meatus to 30-[place] using curved metal sounds. I was then able to insert the resectoscope. Once inside the urethra I was able to advance it in and of note the patient has a very high-riding bladder neck. I was ultimately able to get the resectoscope above the high-riding prostate and into the bladder. The bladder was then thoroughly examined. Of note, the patient had a collection of papillary tumors on the left lateral wall. No other tumors were seen within the bladder. All these tumors were completely resected using bipolar loop. Of note, bilateral ureteral orifices were orthotopic and both effluxed clear urine. Once all the tumors were resected they were removed from the bladder and sent for pathologic analysis. The base of resection was cauterized using coagulating current. Once satisfied with hemostasis the resectoscope was removed and an 18-[place] Coude catheter was inserted into the bladder. The balloon was filled with 10 mL of sterile water and then the catheter was connected to gravity drainage. This marked the conclusion of the procedure. The patient was taken out of the dorsal lithotomy position, awakened from anesthesia and transferred to the recovery room in stable condition. ESTIMATED BLOOD LOSS: 5 mL. COMPLICATIONS: None. SPECIMEN: Bladder tumors. PLAN: The patient will follow up in urology clinic next week for catheter removal and discuss pathology results. EMI
== END 2020-07-23 14:35 | disposition home or self-care (01) ==
LOC: M SDC 09:19
PROVIDERS: ATTEND Urology
DX: C67.9 Malignant neoplasm of bladder, unspecified (principal); N35.811 Other urethral stricture, male, meatal; I10 Essential (primary) hypertension; E11.9 Type 2 diabetes mellitus without complications; F43.10 Post-traumatic stress disorder, unspecified; K21.9 Gastro-esophageal reflux disease without esophagitis; M10.9 Gout, unspecified; M12.9 Arthropathy, unspecified; R06.83 Snoring; R31.9 Hematuria, unspecified; R94.31 Abnormal electrocardiogram [ECG] [EKG]; Z79.84 Long term (current) use of oral hypoglycemic drugs; Z79.899 Other long term (current) drug therapy; Z87.891 Personal history of nicotine dependence
CPT/HCPCS: 52235; 88305; J0131; J0690; J1100; J2250; J2405; J2765; J3010

== ENCOUNTER → 2020-12-16 | Outpatient (REF) | payer OTHER ==
[~2020-12-16] MED LIST changes: -LR 1,000 ML IV ONE; -ceFAZolin SOD 2 GM in IV 1 EA IV ONE
== END ==
LOC: M SMT 13:08
PROVIDERS: ATTEND Urology
DX: C67.9 Malignant neoplasm of bladder, unspecified (principal)

== ENCOUNTER → 2021-03-01 | Outpatient (REF) | payer OTHER | LOC: M SMT 19:02 | PROVIDERS: ATTEND Urology | DX: C67.9 Malignant neoplasm of bladder, unspecified (principal) ==

== ENCOUNTER → 2021-05-31 | Outpatient (REF) | payer OTHER | LOC: M SMT 17:20 | PROVIDERS: ATTEND Urology | DX: C67.9 Malignant neoplasm of bladder, unspecified (principal) ==

== ENCOUNTER → 2021-09-05 | Outpatient (REF) | payer OTHER | LOC: M SMT 12:51 | PROVIDERS: ATTEND Urology | DX: C67.9 Malignant neoplasm of bladder, unspecified (principal) ==

== ENCOUNTER → 2021-11-28 | Outpatient (REF) | payer OTHER | LOC: M SMT 17:03 | PROVIDERS: ATTEND Urology | DX: C67.9 Malignant neoplasm of bladder, unspecified (principal) ==

== ENCOUNTER → 2022-03-10 | Outpatient (REF) | payer OTHER | LOC: M SMT 17:06 | PROVIDERS: ATTEND Urology | DX: C67.9 Malignant neoplasm of bladder, unspecified (principal) ==

== ENCOUNTER → 2022-06-05 | Outpatient (REF) | payer OTHER | LOC: M SMT 15:14 | PROVIDERS: ATTEND Urology | DX: C67.9 Malignant neoplasm of bladder, unspecified (principal) ==

== ENCOUNTER → 2022-12-04 | Outpatient (REF) | payer OTHER ==
[~2022-12-04] MED LIST changes: -DILT1CAP6 PO; +DILT240C42 PO
== END ==
LOC: M SMT 12:54
PROVIDERS: ATTEND Urology
DX: C67.9 Malignant neoplasm of bladder, unspecified (principal)

== ENCOUNTER → 2023-06-11 | Outpatient (REF) | payer OTHER | LOC: M SMT 13:03 | PROVIDERS: ATTEND Urology | DX: C67.9 Malignant neoplasm of bladder, unspecified (principal) ==

== ENCOUNTER → 2023-12-14 | Outpatient (REF) | payer OTHER | LOC: M SMT 16:53 | PROVIDERS: ATTEND Urology | DX: C67.9 Malignant neoplasm of bladder, unspecified (principal) ==

== ENCOUNTER → 2024-06-16 | Outpatient (REF) | payer OTHER | LOC: M SMT 17:25 | PROVIDERS: ATTEND Urology | DX: C64.9 Malignant neoplasm of unspecified kidney, except renal pelvis (principal) ==

== ENCOUNTER → 2025-06-15 | Outpatient (REF) | payer OTHER ==
[~2025-06-15] MED LIST changes: +GLIP-318 PO; -GLIP5TAB20 PO; -PRAV10TA3 PO; +PRAV10TA43 PO
== END ==
LOC: M SMT 13:01
PROVIDERS: ATTEND Urology
DX: C67.9 Malignant neoplasm of bladder, unspecified (principal)